=== PATIENT | female | born 1970 | race Caucasian/White ===

== ENCOUNTER → 2017-03-28 | Outpatient (CLI) | payer OTHER, SELFPAY ==
--- NOTE | 2017-03-28 16:15 | REP ---
MRI lumbar spine without contrast: History: Lumbar spine degeneration. Comparison lumbar spine MRI study is from 06/06/2015. Technique: Sagittal and axial T1 and T2-weighted scans are acquired in the usual fashion with and without fat saturation. Sequences include spin echo, turbo spin-echo, and STIR imaging sequences. MRI findings: Conus medullaris is normal in position and appearance at the L1 level. There are perineural cysts at the level of the second sacral segment. Lumbar vertebral body heights are preserved. Alignment is normal. There is no evidence of spondylolysis or spondylolisthesis. Disc spaces are maintained at each lumbar level except at L4-5 where there is mild narrowing and decreased disc space signal intensity. This is consistent with degenerative disc disease. Axial and sagittal images at L4-5 show mild facet hypertrophy but no evidence of disc herniation. No central canal stenosis or neural foraminal narrowing is seen. The L5-S1 level shows minimal facet hypertrophy. At L3-4, L2-3, and L1-2, no abnormality is seen. The degenerative disc changes and facet changes at L4-5 are radiographically stable from the prior study. Impression: Mild degenerative disc changes at L4-5 with facet osteoarthritic hypertrophy at 4-5 and 5-1 unchanged from the 2015 study. Perineural cysts incidentally noted in the sacrum unchanged as well. Signed by Jey Rodas MD 03/28/2017 05:00 P
== END ==
LOC: M PLARAD 15:15
PROVIDERS: ATTEND Physical Medicine & Rehabilitation
DX: M51.37 Other intervertebral disc degeneration, lumbosacral region (principal)

== ENCOUNTER → 2017-03-29 | Outpatient (REF) | payer BC, OTHER ==
[2017-03-30 15:59] LABS: AMYLASE 65 U/L (25-115); PERCENT SATURATION 36.5 % (13.2-45.0); TOTAL IRON BINDING CAPACITY 271 UG/DL (250-450)
[2017-03-31 08:20] LABS: CONTROL LINE HPYORI INT CTR LINE PRESENT
== END ==
LOC: M LAB REF 13:14
PROVIDERS: ATTEND Internal Medicine
DX: R23.1 Pallor (principal); R10.13 Epigastric pain

== ENCOUNTER → 2017-05-17 | Outpatient (REF) | payer BC | LOC: M LAB REF 11:56 | PROVIDERS: ATTEND Internal Medicine | DX: R30.0 Dysuria (principal); R35.0 Frequency of micturition; G25.81 Restless legs syndrome ==

== ENCOUNTER → 2017-05-27 | Outpatient (REF) | payer BC | LOC: M LAB REF 16:12 | PROVIDERS: ATTEND Internal Medicine | DX: R35.0 Frequency of micturition (principal) ==

== ENCOUNTER → 2017-06-02 | Outpatient (REF) | payer BC ==
[2017-06-02 20:13] LABS: BACTERIA, URINE SMALL AMOUNT; HYALINE CAST, URINE NONE SEEN /lpf (0-1); MICROSCOPIC EXAM PERFORMED; RBC, URINE 0-1 /hpf (0-3); SQUAMOUS EPITHELIAL CELL URINE SMALL AMOUNT /hpf (SMALL AMT); WBC, URINE 0-1 /hpf (0-3)
== END ==
LOC: M SMT 17:32
PROVIDERS: ATTEND Specialist
DX: M54.5 Low back pain (principal)

== ENCOUNTER → 2017-07-04 | Outpatient (REF) | payer BC | LOC: M SFHCWAGY 10:00 | PROVIDERS: ATTEND Nurse Practitioner Women's Health | DX: Z12.4 Encounter for screening for malignant neoplasm of cervix (principal); Z12.31 Encounter for screening mammogram for malignant neoplasm of breast ==

== ENCOUNTER → 2017-07-04 | Outpatient (CLI) | payer BC ==
--- NOTE | 2017-07-04 10:43 | REPMRS ---
Patient History The patient states she had a clinical breast exam in 06/2017. Family history of breast cancer in paternal aunt at age 50 or over and breast cancer in paternal grandmother. Digital Woman Screen Mammo: July 04, 2017 - Exam #: [id number] Bilateral CC and MLO view(s) were taken. Technologist: Anisha Dupree, Technologist Prior study comparison: May 04, 2016, digital woman screen mammo performed at [facility]. April 23, 2015, digital woman screen mammo performed at [facility] [place]. FINDINGS: The breast tissue is heterogeneously dense. This may lower the sensitivity of mammography. There has been no change in the appearance of the mammogram from the prior studies. There is a moderate amount of residual fibroglandular tissue which is fairly symmetric. There is no interval development of dominant mass, areas of architectural distortion, or clustered microcalcification typical of malignancy. ASSESSMENT: BI-RADS/ACR category 1 mammogram. Negative. Recommendation Routine screening mammogram in 1 year (for women over age 40). This mammogram was interpreted with the aid of an FDA-approved computer-aided dectection system. Electronically Signed By: Daljit Toribio MD 07/04/17 [id number]
== END ==
LOC: M WHC 09:42
PROVIDERS: ATTEND Nurse Practitioner Women's Health
DX: Z12.31 Encounter for screening mammogram for malignant neoplasm of breast (principal); R92.8 Other abnormal and inconclusive findings on diagnostic imaging of breast

== ENCOUNTER 2018-01-20 12:31 | Day surgery (SDC) | payer OTHER ==
[2018-01-20] MEDS ORDERED: NS 1,000 ML IV (12:45)
[2018-01-20] MEDS ORDERED: PROPOFOL 200 MG/20 ML VIAL As Ordered ×2 (14:17)
== END 2018-01-20 15:41 | disposition home or self-care (01) ==
LOC: M OPP 12:31
DX: Z12.11 Encounter for screening for malignant neoplasm of colon (principal); Z86.010 Personal history of colon polyps; D12.3 Benign neoplasm of transverse colon; K57.30 Diverticulosis of large intestine without perforation or abscess without bleeding; K64.8 Other hemorrhoids; J45.909 Unspecified asthma, uncomplicated; F32.9 Major depressive disorder, single episode, unspecified; G43.909 Migraine, unspecified, not intractable, without status migrainosus; F41.0 Panic disorder [episodic paroxysmal anxiety]; K58.9 Irritable bowel syndrome, unspecified; Z79.899 Other long term (current) drug therapy; Z88.8 Allergy status to other drugs, medicaments and biological substances; Z83.3 Family history of diabetes mellitus; Z80.7 Family history of other malignant neoplasms of lymphoid, hematopoietic and related tissues; Z82.49 Family history of ischemic heart disease and other diseases of the circulatory system
CPT/HCPCS: 45385

== ENCOUNTER → 2018-03-02 | Outpatient (REF) | payer OTHER ==
[2018-03-02 17:55] LABS: RHEUMATOID FACTOR QUANT < 10.0 IU/ML (<15.0)
[2018-03-05 00:06] LABS: ANTI DOUBLE STRAND-DNA AB <1 IU/mL (0-9); Lyme Disease IgG/IgM Antibodie <0.91 ISR (0.00-0.90); Lyme Disease IgM Ab Quantitati <0.80 index (0.00-0.79); RNP ANTIBODY < 0.2 AI (0.0-0.9); SMITHS ANTIBODY < 0.2 AI (0.0-0.9); SSA SJOGRENS A <0.2 AI (0.0-0.9); SSB SJOGRENS B <0.2 AI (0.0-0.9)
[2018-03-05 00:06] LABS: ANTI-CHROMATIN ANTIBODIES <0.2 AI (0.0-0.9)
== END ==
LOC: M LAB REF 17:30
DX: M25.50 Pain in unspecified joint (principal)

== ENCOUNTER 2018-03-13 08:12 | Outpatient (RCR) | payer OTHER | END 2018-03-14 | LOC: M PT 08:12 | DX: Z51.89 Encounter for other specified aftercare (principal); M54.30 Sciatica, unspecified side | CPT/HCPCS: 97163 ==

== ENCOUNTER 2018-03-28 09:24 | Outpatient (RCR) | payer OTHER | END 2018-04-14 | LOC: M PT 09:24 | DX: Z51.89 Encounter for other specified aftercare (principal); M54.30 Sciatica, unspecified side | CPT/HCPCS: 97010 ==

== ENCOUNTER 2018-04-18 09:23 | Outpatient (RCR) | payer OTHER | END 2018-05-14 | LOC: M PT 09:23 | DX: Z51.89 Encounter for other specified aftercare (principal); M54.30 Sciatica, unspecified side | CPT/HCPCS: 97110 ==

== ENCOUNTER → 2018-05-09 | Outpatient (CLI) | payer OTHER | LOC: M WHC 15:03 | DX: N92.1 Excessive and frequent menstruation with irregular cycle (principal); N88.8 Other specified noninflammatory disorders of cervix uteri | CPT/HCPCS: 76830 ==

== ENCOUNTER → 2018-07-28 | Outpatient (REF) | payer OTHER ==
[~2018-07-28] MED LIST: BREO1INH3 INH; DULO1CAP2 PO; MONT10TA2 PO; PANT40TA3 PO; ROPI0.253 PO; ROPI0.5T PO; TOPI25TA10 PO
[2018-07-28 14:16] LABS: TOTAL PROTEIN 7.3 GM/DL (6.4-8.2)
[2018-07-31 11:55] LABS: ALBUMIN 4.07 GM/DL (3.29-5.55); ALBUMIN % 55.8 % (55.8-66.1); ALPHA-1-GLOBULIN % 4.2 % (2.9-4.9); ALPHA-1-GLOBULINS 0.31 GM/DL (0.17-0.41); ALPHA-2-GLOBULINS 0.86 GM/DL (0.42-0.99); ALPHA-2-GLOBULINS % 11.8 % (7.1-11.8); BETA-1-GLOBULINS 0.51 GM/DL (0.28-0.60); BETA-2-GLOBULINS 0.43 GM/DL (0.19-0.55); BETA-2-GLOBULINS % 5.9 % (3.2-6.5); GAMMA GLOBULIN % 15.3 % (11.1-18.8); GAMMA GLOBULINS 1.12 GM/DL (0.65-1.58)
== END ==
LOC: M LAB REF 13:15
PROVIDERS: ATTEND Nurse Practitioner Family
DX: R00.2 Palpitations (principal)

== ENCOUNTER → 2018-09-26 | Outpatient (CLI) | payer BC ==
--- NOTE | 2018-09-26 11:34 | REPMRS ---
Patient History The patient states she had a clinical breast exam in 09/2018. Family history of breast cancer at age 50 or over in paternal aunt, breast cancer in paternal grandmother. No Hormone Replacement Therapy 3D TOMOSYNTHESIS WAS PERFORMED. Digital Woman Screen Mammo: September 26, 2018 - Exam #: [id number] Bilateral CC and MLO view(s) were taken. Technologist: Anisha Dupree, Technologist Prior study comparison: July 04, 2017, digital woman screen mammo performed at [facility]. May 04, 2016, digital woman screen mammo performed at [facility]. FINDINGS: The breast tissue is heterogeneously dense. This may lower the sensitivity of mammography. There has been no change in the appearance of the mammogram from the prior studies. There is a moderate amount of residual fibroglandular tissue which is fairly symmetric. There is no interval development of dominant mass, areas of architectural distortion, or clustered microcalcification typical of malignancy. Assessment: BI-RADS/ACR category 1 mammogram. Negative Mammogram. Recommendation Routine screening mammogram in 1 year (for women over age 40). This mammogram was interpreted with the aid of an FDA-approved computer-aided dectection system. Electronically Signed By: Daljit Toribio MD 09/26/18 [id number]
== END ==
LOC: M WHC 09:44
PROVIDERS: ATTEND Nurse Practitioner Women's Health
DX: Z12.31 Encounter for screening mammogram for malignant neoplasm of breast (principal); Z80.3 Family history of malignant neoplasm of breast

== ENCOUNTER 2018-10-06 20:46 | Inpatient (IN) | payer BC ==
[~2018-10-06] VITALS: Ht 162.6 cm; Wt 102.6 kg
[2018-10-06] MEDS ORDERED: RANI1SYP PO (20:52)
[2018-10-06] MEDS ORDERED: HYDR12.55 PO (20:52)
[2018-10-06 21:50] LABS: BASO # 0.1 10^3/uL (0.0-0.2); BASO % 0.4 % (0.0-1.0); EOS # 0.1 10^3/uL (0.0-0.50); EOS % 0.4 % (0.0-3.0); HEMATOCRIT 41.2 % (36.0-47.0); HEMOGLOBIN 13.2 g/dl (12.0-15.5); LYMPH # 1.9 10^3/uL (1.5-4.5); LYMPH % 10.3 % (24.0-44.0); MEAN CORPUSCULAR HEMOGLOBIN 26.8 pg (27.0-33.0); MEAN CORPUSCULAR VOLUME 83.6 fl (80.0-96.0); MONO # 0.9 10^3/uL (0.0-0.8); MONO % 4.8 % (0.0-5.0); NEUTROPHILS # 15.2 10^3/uL (1.8-7.7); NEUTROPHILS % 83.5 % (36.0-66.0); PLATELET COUNT, AUTOMATED 352 10^3/uL (150-450); RED BLOOD COUNT 4.93 10^6/uL (4.00-5.40); WHITE BLOOD COUNT 18.1 10^3/uL (4.0-10.0)
[2018-10-06] MEDS ORDERED: SUCRALFATE 1 GM TAB PO ONE (22:15)
[2018-10-06] MEDS ORDERED: PANTOPRAZOLE 40MG TAB (PROTONIX) PO ONE (22:15)
[2018-10-06] MEDS ORDERED: GI COCKTAIL 50ML BTL(HYOSCYAMINE/MAALOX/LIDOCAINE VISCOUS)(1:3:1) PO ONE (22:15)
[2018-10-06] MEDS ORDERED: ONDANSETRON 4MG/2ML VIAL (J2405) IV ONE (22:15)
[2018-10-06] MEDS ORDERED: NS 1,000 ML IV ONE (22:15)
[2018-10-06 22:29] LABS: ALBUMIN 3.6 GM/DL (3.2-5.2); ALT/SGPT 42 U/L (12-78); BILIRUBIN,DIRECT 0.1 MG/DL (0.0-0.2); BILIRUBIN,TOTAL 0.5 MG/DL (0.2-1.0); BLOOD UREA NITROGEN 11 MG/DL (7-18); CALCIUM LEVEL 9.2 MG/DL (8.5-10.1); CARBON DIOXIDE LEVEL 30 MEQ/L (21-32); CHLORIDE LEVEL 100 MEQ/L (98-107); CREATININE FOR GFR 0.79 MG/DL (0.55-1.30); GLOMERULAR FILTRATION RATE > 60.0 (>58); GLUCOSE, FASTING 106 MG/DL (70-100); LIPASE 82 U/L (73-393); POTASSIUM SERUM 4.2 MEQ/L (3.5-5.1); SODIUM LEVEL 139 MEQ/L (136-145); TOTAL PROTEIN 7.1 GM/DL (6.4-8.2)
[2018-10-06] MEDS ORDERED: KETOROLAC 30 MG/ML VIAL (J1885) IV ONE (23:15)
[2018-10-06 23:24] LABS: CK-MB VALUE MASS < 1.0 NG/ML (<3.6); CPK CREATINE PHOSPHOKINASE 59 U/L (26-192); MB/CK RELATIVE INDEX 1.69 (< OR =4); TROPONIN I < 0.02 NG/ML (< 0.10)
[2018-10-06] MEDS ORDERED: ISOVUE-370 76% 100ML VIAL (Q9967) As Ordered ONE (23:40)
[2018-10-06 23:45] LABS: HCG, SERUM QUALITATIVE NEGATIVE (NEGATIVE)
--- NOTE | 2018-10-07 00:17 | REPVR ---
EXAM: CT Abdomen and Pelvis With Contrast EXAM DATE/TIME: 10/06/2018 11:09 PM CLINICAL HISTORY: 48 years old, female; Pain; Abdominal pain; Localized; Right; Additional info: Ruq, rlq pain sudden onset TECHNIQUE: Axial computed tomography images of the abdomen and pelvis with intravenous contrast. All CT scans at this facility use at least one of these dose optimization techniques: automated exposure control; mA and/or kV adjustment per patient size (includes targeted exams where dose is matched to clinical indication); or iterative reconstruction. Coronal and sagittal reformatted images were created and reviewed. CONTRAST: Contrast Material: 100 ml of iso; Contrast Route: ac COMPARISON: PELVIS NON-OB COMPLETE US 05/09/2018 3:15 PM FINDINGS: Lower thorax: Mild linear stranding and groundglass at the lung bases, likely due to atelectasis and/or scarring. Small hiatal hernia. ABDOMEN: Liver: Diffuse hepatic steatosis. Scattered hepatic cysts, measuring up to 1.5 x 1.2 cm and the right hepatic lobe. Gallbladder and bile ducts: No radiodense gallstones. No biliary ductal dilatation. Pancreas: Unremarkable. Spleen: Unremarkable. Adrenals: Unremarkable. Kidneys and ureters: 7 mm low-density right renal lesion, too small to characterize. No radiodense calculi. No hydronephrosis. Stomach and bowel: Multiple mildly distended loops of small bowel in the right abdomen with associated air-fluid levels and transition to decompressed distal small bowel in the right lower quadrant, where there is associated fecalization and mild small bowel wall thickening. Scattered colonic diverticula without evidence of diverticulitis. No pneumatosis. Appendix: Normal. PELVIS: Bladder: Unremarkable. Reproductive: Probable cervical nabothian cysts. Mild nonspecific endometrial thickening. ABDOMEN and PELVIS: Intraperitoneal space: Small ascites, likely reactive. No organized fluid collection. No free air. Bones/joints: No acute osseous abnormality. Mild degenerative changes. Soft tissues: Small, fat-containing umbilical hernia. Vasculature: Unremarkable. No aneurysm. Lymph nodes: No pathologically enlarged lymph nodes. IMPRESSION: 1. Multiple mildly distended loops of small bowel in the right abdomen with associated air-fluid levels and transition to decompressed distal small bowel in the right lower quadrant, where there is associated fecalization and mild small bowel wall thickening. Findings are suggestive of early versus partial small bowel obstruction. 2. Mild nonspecific endometrial thickening. If clinically indicated, pelvic ultrasound may be obtained for further evaluation. 3. Additional findings, as above. COMMENT: Consistent with the [employer] Incidental Findings Committee Report (J Am Baltazar Radiol 2010): Unless the patients specific circumstances suggest otherwise, any liver lesion 0.5 cm or less, any cystic kidney lesion less than 1.0 cm, and/or any adrenal lesion 1.0 cm or less not otherwise characterized in this report as possessing suspicious or indeterminate imaging features is/are highly likely to be benign and do not require follow-up imaging or biopsy. Electronically signed by: Manuel Sloan On 10/07/2018 00:17:15 AM
[2018-10-07] MEDS ORDERED: ACETAMINOPHEN TAB 650MG DOSE (2X325MG) PO PRN (01:15)
[2018-10-07] MEDS ORDERED: ONDANSETRON 4MG/2ML VIAL (J2405) IV PRN (01:15)
[2018-10-07] MEDS ORDERED: KETOROLAC 30 MG/ML VIAL (J1885) IV PRN (01:15)
[2018-10-07] MEDS ORDERED: NORCO, ANEXSIA 5/325MG TABLET (HYDROcodone/ACETAMINOPHEN) PO PRN (01:15)
[2018-10-07] MEDS ORDERED: DULO1CAP2 PO (01:30)
[2018-10-07] MEDS ORDERED: ROPI0.253 PO (01:30)
[2018-10-07 03:00] VITALS: BP 169/95
[2018-10-07] MEDS: MORPHINE 4 MG/ML 1ML VIAL/SYRINGE (J2270) IV PRN ×2 (03:15→09:57)
[2018-10-07] MEDS: LR 1,000 ML IV SCH ×3 (03:19→18:04)
[2018-10-07 03:45] VITALS: BP 123/61
--- NOTE | 2018-10-07 05:55 | ECGEPIP ---
Stationary ECG Study [facility] - ED Test Date: 2018-10-06 Pat Name: SANTIAGO LYNN Department: Room: - Gender: F Key Filer: ct : 1970 Requested By: JONATHAN Cole PA-C Order Number: [id number] Reading MD: Juan Smith Measurements Intervals [place] Rate: 82 P: 25 DC: 142 QRS: 20 QRSD: 90 T: 57 QT: 378 QTc: 442 Interpretive Statements SINUS RHYTHM NONSPECIFIC ST & T-WAVE ABNORMALITY SIMILAR TO 09/25/15 Electronically Signed On 10-07-2018 5:55:00 EST by Juan Smith
[2018-10-07 08:00] VITALS: BP 124/67
[2018-10-07 09:10] LABS: HEMATOCRIT 38.5 % (36.0-47.0); HEMOGLOBIN 12.2 g/dl (12.0-15.5); MEAN CORPUSCULAR HEMOGLOBIN 27.1 pg (27.0-33.0); MEAN CORPUSCULAR HGB CONC 31.7 g/dl (32.0-36.5); MEAN CORPUSCULAR VOLUME 85.4 fl (80.0-96.0); PLATELET COUNT, AUTOMATED 335 10^3/uL (150-450); RED BLOOD COUNT 4.51 10^6/uL (4.00-5.40); WHITE BLOOD COUNT 12.6 10^3/uL (4.0-10.0)
--- NOTE | 2018-10-07 09:35 | REP ---
Acute abdominal series four views including PA chest, upright view of the abdomen and two supine views of the abdomen: PA chest: Comparison is 11/11/2015. Lung [place] are clear. Cardiac size is normal. The gaston, mediastinum, skeletal structures are unremarkable. There is no free subdiaphragmatic air. No interval change. Impression: Negative PA chest. Abdomen, supine upright views: Comparison is the CT performed 10/06/2018. The bowel gas pattern is normal. There are no calcifications. There is contrast in the renal pelves and bladder from the comparison CT. There are no calcifications or foreign bodies. Skeletal structures are unremarkable. Impression: Normal bowel gas pattern. Electronically Signed by Daljit Navarro MD 10/07/2018 09:26 A
[2018-10-07 09:37] LABS: ALBUMIN 3.1 GM/DL (3.2-5.2); ALT/SGPT 37 U/L (12-78); BILIRUBIN,TOTAL 0.3 MG/DL (0.2-1.0); BLOOD UREA NITROGEN 10 MG/DL (7-18); CALCIUM LEVEL 8.3 MG/DL (8.5-10.1); CARBON DIOXIDE LEVEL 31 MEQ/L (21-32); CHLORIDE LEVEL 104 MEQ/L (98-107); CREATININE FOR GFR 0.75 MG/DL (0.55-1.30); GLOMERULAR FILTRATION RATE > 60.0 (>58); GLUCOSE, FASTING 84 MG/DL (70-100); POTASSIUM SERUM 4.1 MEQ/L (3.5-5.1); SODIUM LEVEL 143 MEQ/L (136-145)
[2018-10-07] MEDS: PANTOPRAZOLE 40MG INJ (PROTONIX) (C9113) IV SCH (09:38)
[2018-10-07] MEDS: ENOXAPARIN 30 MG/0.3 ML SYR (J1650) SC SCH (10:12)
--- NOTE | 2018-10-07 10:36 | IPNPDOC ---
Subjective Date Seen The patient was seen on 10/07/18. Subjective Chief Complaint/HPI Patient was examined at bedside. She reported that she h VS, I&O, 24H, Fishbone Vital Signs/I&O Vital Signs Date Time Temp Pulse Resp B/P (MAP) Pulse Ox O2 Delivery O2 Flow Rate FiO2 10/07/18 10:11 20 10/07/18 08:00 97.2 67 124/67 (86) 95 10/07/18 01:57 Room Air I&O- Last 24 Hours up to 6 AM 10/07/18 06:00 Intake Total 375 ml Balance 375 ml Laboratory Data 24H LABS Laboratory Tests 2 10/06/18 21:35: Immature Granulocyte % (Auto) 0.6, White Blood Count 18.1H, Red Blood Count 4.93, Hemoglobin 13.2, Hematocrit 41.2, Mean Corpuscular Volume 83.6, Mean Corpuscular Hemoglobin 26.8L, Mean Corpuscular Hemoglobin Concent 32.0, Red Cell Distribution Width 14.2, Platelet Count 352, Neutrophils (%) (Auto) 83.5H, Lymphocytes (%) (Auto) 10.3L, Monocytes (%) (Auto) 4.8, Eosinophils (%) (Auto) 0.4, Basophils (%) (Auto) 0.4, Neutrophils # (Auto) 15.2H, Lymphocytes # (Auto) 1.9, Monocytes # (Auto) 0.9H, Eosinophils # (Auto) 0.1, Basophils # (Auto) 0.1, Nucleated Red Blood Cells % (auto) 0.0, Urine Color YELLOW, Urine Appearance HAZY, Urine pH 9.0, Urine Specific [place] 1.011, Urine Protein NEGATIVE, Urine Glucose (UA) NEGATIVE, Urine Ketones TRACEH, Urine Blood 2+H, Urine Nitrite NEGATIVE, Urine Bilirubin NEGATIVE, Urine Urobilinogen 0.2, Urine Leukocyte Esterase NEGATIVE, Urine WBC (Auto) 2, Urine RBC (Auto) 37H, Urine Hyaline Casts (Auto) 0, Urine Bacteria (Auto) NEGATIVE, Urine Squamous Epithelial Cells 0, Urine Amorphous Sediment SMALLH, Urine Mucus (Auto) SMALL, Urine Sperm (Auto) , Anion Gap 9, Glomerular Filtration Rate > 60.0, Calcium Level 9.2, Aspartate Amino Transf (AST/SGOT) 30, Alanine Aminotransferase (ALT/SGPT) 42, Alkaline Phosphatase 121H, Total Bilirubin 0.5, Direct Bilirubin 0.1, Total Creatine Kinase 59, Creatine Kinase MB < 1.0, Creatine Kinase MB Relative Index 1.69, Troponin I < 0.02, Total Protein 7.1, Albumin 3.6, Albumin/Globulin Ratio 1.03, Lipase 82, Human Chorionic Gonadotropin, Qual NEGATIVE 10/07/18 08:43: Nucleated Red Blood Cells % (auto) 0.0, Anion Gap 8, Glomerular Filtration Rate > 60.0, Calcium Level 8.3L, Aspartate Amino Transf (AST/SGOT) 27, Alanine Aminotransferase (ALT/SGPT) 37, Alkaline Phosphatase 112, Total Bilirubin 0.3, Total Protein 6.0L, Albumin 3.1L, Albumin/Globulin Ratio 1.07, Blood Urea Nitrogen 10, Creatinine 0.75, Sodium Level 143, Potassium Level 4.1, Chloride Level 104, Carbon Dioxide Level 31 CBC/BMP Laboratory Tests 10/06/18 21:35 Red Blood Count 4.93, Mean Corpuscular Volume 83.6, Mean Corpuscular Hemoglobin 26.8 L, Mean Corpuscular Hemoglobin Concent 32.0, Red Cell Distribution Width 14.2, Neutrophils (%) (Auto) 83.5 H, Lymphocytes (%) (Auto) 10.3 L, Monocytes (%) (Auto) 4.8, Eosinophils (%) (Auto) 0.4, Basophils (%) (Auto) 0.4, Neutro phils # (Auto) 15.2 H, Lymphocytes # (Auto) 1.9, Monocytes # (Auto) 0.9 H, Eosinophils # (Auto) 0.1, Basophils # (Auto) 0.1 10/07/18 08:43 Red Blood Count 4.51, Mean Corpuscular Volume 85.4, Mean Corpuscular Hemoglobin 27.1, Mean Corpuscular Hemoglobin Concent 31.7 L, Red Cell Distribution Width 14.4, Calcium Level 8.3 L, Aspartate Amino Transf (AST/SGOT) 27, Alanine Aminotr ansferase (ALT/SGPT) 37, Alkaline Phosphatase 112, Total Bilirubin 0.3, Total Protein 6.0 L, Albumin 3.1 L HECTOR LARES DO Oct 07, 2018 10:36
[2018-10-07] MEDS: MOM 30ML SUSPENSION UDC PO SCH (10:51)
[2018-10-07] MEDS: NORCO, ANEXSIA 5/325MG TABLET (HYDROcodone/ACETAMINOPHEN) PO PRN ×2 (10:52→16:38)
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
[2018-10-07] MEDS ORDERED: ALBUTEROL 90 MCG/ACT 8GM HFA INHALER INH PRN (11:30)
[2018-10-07] MEDS: hydroCHLOROthiazide 12.5 MG CAPSULE PO SCH (12:35)
[2018-10-07] MEDS: TOPIRAMATE (TopAMAX) 25 MG TAB PO SCH (12:35)
[2018-10-07] MEDS: DULoxetine 30 MG CAP (CYMBALTA) PO SCH (12:35)
[2018-10-07 16:00] VITALS: BP 131/62
[2018-10-07] MEDS: SYMBICORT 80/4.5MCG INHALER 6GM INH SCH (19:13)
[2018-10-07 20:00] VITALS: BP 116/57
[2018-10-07] MEDS ORDERED: rOPINIRole 0.25 MG TAB(REQUIP) PO SCH (21:00)
[2018-10-07] MEDS ORDERED: DULoxetine 30 MG CAP (CYMBALTA) PO SCH (21:00)
[2018-10-08] MEDS: LR 1,000 ML IV SCH ×2 (01:39→09:33)
[2018-10-08 04:00] VITALS: BP 126/60
[2018-10-08] MEDS ORDERED: MIRALAX *UNIT DOSE* 17GM PACKET PO ONE (07:15)
[2018-10-08] MEDS: SYMBICORT 80/4.5MCG INHALER 6GM INH SCH (07:32)
[2018-10-08 07:45] VITALS: BP 123/73
[2018-10-08 08:23] LABS: HEMATOCRIT 35.4 % (36.0-47.0); HEMOGLOBIN 11.2 g/dl (12.0-15.5); MEAN CORPUSCULAR HEMOGLOBIN 27.6 pg (27.0-33.0); MEAN CORPUSCULAR HGB CONC 31.6 g/dl (32.0-36.5); MEAN CORPUSCULAR VOLUME 87.2 fl (80.0-96.0); PLATELET COUNT, AUTOMATED 267 10^3/uL (150-450); RED BLOOD COUNT 4.06 10^6/uL (4.00-5.40)
[2018-10-08] MEDS: MOM 30ML SUSPENSION UDC PO SCH (08:30)
[2018-10-08] MEDS: DULoxetine 30 MG CAP (CYMBALTA) PO SCH (08:30)
[2018-10-08] MEDS: hydroCHLOROthiazide 12.5 MG CAPSULE PO SCH (08:30)
[2018-10-08] MEDS: TOPIRAMATE (TopAMAX) 25 MG TAB PO SCH (08:31)
[2018-10-08] MEDS: ENOXAPARIN 30 MG/0.3 ML SYR (J1650) SC SCH (08:31)
[2018-10-08] MEDS: PANTOPRAZOLE 40MG INJ (PROTONIX) (C9113) IV SCH (08:31)
[2018-10-08 08:40] LABS: BLOOD UREA NITROGEN 6 MG/DL (7-18); CALCIUM LEVEL 7.7 MG/DL (8.5-10.1); CARBON DIOXIDE LEVEL 30 MEQ/L (21-32); CHLORIDE LEVEL 106 MEQ/L (98-107); CREATININE FOR GFR 0.74 MG/DL (0.55-1.30); GLOMERULAR FILTRATION RATE > 60.0 (>58); GLUCOSE, FASTING 80 MG/DL (70-100); POTASSIUM SERUM 4.1 MEQ/L (3.5-5.1); SODIUM LEVEL 144 MEQ/L (136-145)
[2018-10-08] MEDS ORDERED: MONTELUKAST 10 MG TAB PO SCH (09:00)
[2018-10-08] MEDS ORDERED: NORCOTAB PO (14:26)
--- NOTE | 2018-10-08 14:38 | DS.PDOC ---
Discharge Summary General Date of Admission Oct 07, 2018 at 01:12 Date of Discharge October 08, 2018 Attending Physician: SAUMYA DAWSON MD Discharge Summary PROCEDURES PERFORMED DURING STAY: None. ADMITTING DIAGNOSES: 1. partial small bowel obstruction vs gastroenteritis with ileus. DISCHARGE DIAGNOSES: 1. partial small bowel obstruction vs gastroenteritis with ileus resolved. COMPLICATIONS/CHIEF COMPLAINT: Small Bowelobstuction. HISTORY OF PRESENT ILLNESS: . HOSPITAL COURSE: . DISCHARGE MEDICATIONS: Please see below. ALLERGIES: Please see below. PHYSICAL EXAMINATION ON DISCHARGE: VITAL SIGNS: Please see below. GENERAL: HEENT: NECK: CARDIOVASCULAR EXAMINATION: RESPIRATORY EXAMINATION: ABDOMINAL EXAMINATION: EXTREMITIES: SKIN: NEUROLOGICAL EXAMINATION: PSYCHIATRIC EXAMINATION: LABORATORY DATA: Please see below. IMAGING: PROGNOSIS: ACTIVITY: [As tolerated]. DIET: DISCHARGE PLAN: DISPOSITION: . DISCHARGE INSTRUCTIONS: 1. . ITEMS TO FOLLOWUP ON ON OUTPATIENT: 1. . DISCHARGE CONDITION: [Stable]. TIME SPENT ON DISCHARGE: Greater than minutes. Vital Signs/I&Os Vital Signs Date Time Temp Pulse Resp B/P (MAP) Pulse Ox O2 Delivery O2 Flow Rate FiO2 10/08/18 07:45 97.8 76 18 123/73 (90) 96 10/07/18 01:57 Room Air I&O- Last 24 Hours up to 6 AM 10/08/18 06:00 Intake Total 3360 ml Output Total 1200 ml Balance 2160 ml Laboratory Data Labs 24H Laboratory Tests 2 10/08/18 07:53: Nucleated Red Blood Cells % (auto) 0.0, Anion Gap 8, Glomerular Filtration Rate > 60.0, Blood Urea Nitrogen 6L, Creatinine 0.74, Sodium Level 144, Potassium Level 4.1, Chloride Level 106, Carbon Dioxide Level 30, Calcium Level 7.7L CBC/BMP Laboratory Tests 10/08/18 07:53 Red Blood Count 4.06, Mean Corpuscular Volume 87.2, Mean Corpuscular Hemoglobin 27.6, Mean Corpuscular Hemoglobin Concent 31.6 L, Red Cell Distribution Width 14.4, Calcium Level 7.7 L Discharge Medications Scheduled Duloxetine Hcl (Duloxetine HCl) 30 Mg Cap, 60 MG PO QAM, (Reported) Duloxetine Hcl (Duloxetine HCl) 30 Mg Cap, 30 MG PO QHS, (Reported) Fluticasone/Vilanterol (Breo Ellipta 200-25 Mcg/INH) 1 Inh Inh, 1 PUFF INH DAILY, (Reported) Hydrochlorothiazide (Hydrochlorothiazide) 12.5 Mg Tab, 12.5 MG PO DAILY, (Reported) Montelukast Sodium (Montelukast Sodium) 10 Mg Tab, 10 MG PO DAILY, (Reported) Ropinirole Hydrochloride (Ropinirole HCl) 0.25 Mg Tab, 0.75 MG PO QPM, (Reported) Topiramate (Topiramate) 25 Mg Tab, 25 MG PO DAILY, (Reported) Scheduled PRN Acetaminophen/Hydrocodone ([employer], Anexsia 5/325) 1 Tab Tab, 1 TAB PO Q4HP PRN for MODERATE PAIN (PS 5-7) Allergies Coded Allergies: Amitriptyline (Verified Adverse Reaction, Unknown, over sedation, 01/05/18) SAUMYA DAWSON MD Oct 08, 2018 14:38
== END 2018-10-08 15:15 | disposition home or self-care (01) | DRG 247 ==
LOC: M ED 20:46 → M ED INP 10-07 01:12 → M PED 10-07 02:52
PROVIDERS: ADMIT Surgery; ATTEND Surgery
DX: K56.600 Partial intestinal obstruction, unspecified as to cause (principal); K76.89 Other specified diseases of liver; K52.9 Noninfective gastroenteritis and colitis, unspecified; Z79.899 Other long term (current) drug therapy; I10 Essential (primary) hypertension; Z88.8 Allergy status to other drugs, medicaments and biological substances; K21.9 Gastro-esophageal reflux disease without esophagitis; J45.20 Mild intermittent asthma, uncomplicated; E66.9 Obesity, unspecified; M54.5 Low back pain; L70.9 Acne, unspecified; N39.3 Stress incontinence (female) (male); F32.9 Major depressive disorder, single episode, unspecified; G43.909 Migraine, unspecified, not intractable, without status migrainosus; K56.7 Ileus, unspecified

== ENCOUNTER → 2018-12-18 | Outpatient (REF) | payer BC ==
[~2018-12-18] MED LIST changes: +HYDR-3715 PO; +HYDR12.55 PO; +RANI1SYP PO
[2018-12-18 13:31] LABS: PERCENT SATURATION 4.5 % (13.2-45.0)
== END ==
LOC: M LAB REF 13:03
PROVIDERS: ATTEND Internal Medicine
DX: N93.9 Abnormal uterine and vaginal bleeding, unspecified (principal)

== ENCOUNTER → 2018-12-20 | Outpatient (REF) | payer BC ==
[~2018-12-20] MED LIST changes: +FERR325T16 PO; +LISI-542 PO
== END ==
LOC: M SFHCWAGY 15:45
PROVIDERS: ATTEND Nurse Practitioner Women's Health
DX: N92.1 Excessive and frequent menstruation with irregular cycle (principal)

== ENCOUNTER 2019-01-02 10:01 | Day surgery (SDC) | payer BC ==
[~2019-01-02] VITALS: Ht 165.1 cm; Wt 102.1 kg
[~2019-01-02 10:01] MED LIST changes: +KETOROLAC 60 MG/2 ML VIAL (J1885) As Ordered ONE; +LIDOCAINE 2% INJ 100 MG/5 ML SDV (FOR ANES.) As Ordered ONE; +LR 1,000 ML IV ONE; +MIDAZOLAM INJ 2 MG/2 ML VIAL (J2250) As Ordered ONE; +ONDANSETRON 4MG/2ML VIAL (J2405) As Ordered ONE; +PROPOFOL 200 MG/20 ML VIAL As Ordered ONE; +dexameTHASONE 4 MG/ML 1ML VIAL (J1100) As Ordered ONE; +fentaNYL 100 MCG/2 ML INJECTION (J3010) As Ordered ONE
[2019-01-02] MEDS ORDERED: SEVOFLURANE INHAL SOLN 250 ML BTL As Ordered ONE (10:52)
[2019-01-02] MEDS ORDERED: PERCOCET 5MG/325MG TAB As Ordered ONE (12:49)
[2019-01-02] MEDS ORDERED: fentaNYL 100 MCG/2 ML INJECTION (J3010) As Ordered ONE (12:49)
[2019-01-02] MEDS ORDERED: ONDANSETRON 4MG/2ML VIAL (J2405) As Ordered ONE (12:50)
[2019-01-02] MEDS ORDERED: NORCO, ANEXSIA 5/325MG TABLET (HYDROcodone/ACETAMINOPHEN) PO PRN (13:00)
[2019-01-02] MEDS ORDERED: METOCLOPRAMIDE INJ 10MG/2ML VIAL (J2765) IV PRN (13:00)
[2019-01-02] MEDS ORDERED: KETOROLAC 30 MG/ML VIAL (J1885) IV PRN (13:00)
[2019-01-02] MEDS ORDERED: ONDANSETRON 4MG/2ML VIAL (J2405) IV PRN (13:00)
[2019-01-02] MEDS ORDERED: LR 1,000 ML IV SCH ×2 (13:00)
[2019-01-02] MEDS: fentaNYL 100 MCG/2 ML INJECTION (J3010) IV PRN ×4 (13:03→13:29)
[2019-01-02] MEDS: PERCOCET 5MG/325MG TAB PO PRN ×2 (13:10→13:46)
[2019-01-02] MEDS ORDERED: dexameTHASONE 4 MG/ML 1ML VIAL (J1100) As Ordered ONE (13:20)
--- NOTE | 2019-01-02 13:39 | RO ---
DATE OF PROCEDURE: 01/02/2019 PREPROCEDURE DIAGNOSIS: Menorrhagia, dysmenorrhea. POSTPROCEDURE DIAGNOSIS: Menorrhagia, dysmenorrhea. PROCEDURE: Dilation and curettage, hysteroscopy, NovaSure ablation. SURGEON: Dr. Nafisa Rodas. EMBOSSOGRAPH OPERATOR: None. ANESTHESIA: Laryngeal mask anesthesia (LMA). DESCRIPTION OF PROCEDURE: Prema was brought to the operating room where sufficient LMA anesthesia was induced and she was prepped, draped and positioned in the usual sterile fashion. The bladder emptied and anterior aspect of the cervix grasped with a single tooth tenaculum. This uterus is reasonably well supported. She then had her cervix carefully dilated. We measured the intracavity length which was 5 because we had a cavity total length of 9 and a cervical length of 4. So giving an endometrial cavity length of 5. This was subsequently measured at 4.6 but at this point, we did not have width measured, so we just had length. We carefully dilated the cervix in order to allow introduction of the hysteroscope, which was used to visual the endometrial cavity. Normal tubal ostia were noted and overgrowth of the endometrium consistent with the patient's history with no significant lesions were noted. Curettage was carried out and then the NovaSure ablative device was placed. Length was set at 5, width was measured at 4.6 and an uncomplicated NovaSure ablation was then carried out. The procedure was ended. ESTIMATED BLOOD LOSS FOR THE PROCEDURE: 5 mL or less. FLUID REPLACEMENT: Crystalloid. COMPLICATIONS: None. SPECIMENS: Curettings. CONDITION AND DISPOSITION: Prema tolerated the procedure well and was recovering in the recovery room in good condition.
[2019-01-02] MEDS ORDERED: MORPHINE 4 MG/ML 1ML VIAL/SYRINGE (J2270) As Ordered ONE (14:22)
[2019-01-02] MEDS ORDERED: MORPHINE 4 MG/ML 1ML VIAL/SYRINGE (J2270) IV PRN (14:30)
[2019-01-02 15:55] VITALS: BP 151/77
[2019-01-02] MEDS ORDERED: IBUPROFEN 600 MG TAB PO PRN (19:00)
== END 2019-01-02 16:02 | disposition home or self-care (01) ==
LOC: M SDC 10:01
PROVIDERS: ATTEND Obstetrics & Gynecology
DX: N94.6 Dysmenorrhea, unspecified (principal); N92.4 Excessive bleeding in the premenopausal period; I10 Essential (primary) hypertension; K58.8 Other irritable bowel syndrome; K21.9 Gastro-esophageal reflux disease without esophagitis; J45.909 Unspecified asthma, uncomplicated; G25.81 Restless legs syndrome; Z88.8 Allergy status to other drugs, medicaments and biological substances; Z79.899 Other long term (current) drug therapy; F41.9 Anxiety disorder, unspecified; F32.9 Major depressive disorder, single episode, unspecified; E66.9 Obesity, unspecified
CPT/HCPCS: 58563; 88305; J1100; J1885; J2250; J2270; J2405; J3010

== ENCOUNTER → 2019-01-29 | Outpatient (REF) | payer BC, OTHER ==
[~2019-01-29] MED LIST changes: -KETOROLAC 60 MG/2 ML VIAL (J1885) As Ordered ONE; -LIDOCAINE 2% INJ 100 MG/5 ML SDV (FOR ANES.) As Ordered ONE; -LR 1,000 ML IV ONE; -MIDAZOLAM INJ 2 MG/2 ML VIAL (J2250) As Ordered ONE; -ONDANSETRON 4MG/2ML VIAL (J2405) As Ordered ONE; -PROPOFOL 200 MG/20 ML VIAL As Ordered ONE; -dexameTHASONE 4 MG/ML 1ML VIAL (J1100) As Ordered ONE; -fentaNYL 100 MCG/2 ML INJECTION (J3010) As Ordered ONE
== END ==
LOC: M LAB REF 12:31
PROVIDERS: ATTEND Internal Medicine
DX: R50.9 Fever, unspecified (principal); R05 Cough; J45.909 Unspecified asthma, uncomplicated

== ENCOUNTER → 2019-04-24 | Outpatient (REF) | payer BC, OTHER ==
[~2019-04-24] MED LIST changes: -DULO1CAP2 PO; +DULO1CAP5 PO
[2019-04-24 18:43] LABS: PERCENT SATURATION 6.8 % (13.2-45.0)
== END ==
LOC: M LAB REF 16:54
PROVIDERS: ATTEND Internal Medicine
DX: D50.9 Iron deficiency anemia, unspecified (principal)

== ENCOUNTER → 2019-08-09 | Outpatient (REF) | payer BC, OTHER ==
[~2019-08-09] MED LIST changes: +ACET-683 PO; +CIPR-249 PO; +IBUP-1022 PO
== END ==
LOC: M LAB REF 12:40
PROVIDERS: ATTEND Nurse Practitioner Family
DX: N39.0 Urinary tract infection, site not specified (principal)

== ENCOUNTER 2019-08-13 09:41 | Emergency (ER) | payer BC, OTHER ==
[~2019-08-13] VITALS: Ht 162.6 cm; Wt 94.0 kg
[~2019-08-13 09:41] MED LIST changes: -ACET-683 PO; -CIPR-249 PO; -IBUP-1022 PO
[2019-08-13] MEDS ORDERED: IBUP-1022 PO (09:51)
[2019-08-13] MEDS ORDERED: ACET-683 PO (09:51)
--- NOTE | 2019-08-13 11:57 | REP ---
Clinical: Cough and shortness of breath . Comparison: 01/29/2019 . Technique: PA and lateral. Findings: The mediastinum and cardiac silhouette are normal. The lung whitlock are clear and without acute consolidation, effusion, or pneumothorax. The skeletal structures are intact and normal. Impression: 1. No acute cardiopulmonary process. Electronically Signed by Joe Rodriguez MD 08/13/2019 11:48 A
[2019-08-13 13:23] LABS: INFLUENZA A AMPLIFICATION NEGATIVE (NEGATIVE); INFLUENZA B AMPLIFICATION NEGATIVE (NEGATIVE)
[2019-08-13 13:48] VITALS: BP 142/78
[2019-08-13] MEDS ORDERED: CIPR-249 PO (14:03)
== END 2019-08-13 14:10 | disposition home or self-care (01) ==
LOC: M ED 09:41
DX: N39.0 Urinary tract infection, site not specified (principal); J20.9 Acute bronchitis, unspecified

== ENCOUNTER → 2019-09-04 | Outpatient (REF) | payer OTHER ==
[~2019-09-04] MED LIST changes: +ACET-683 PO; +CIPR-249 PO; +IBUP-1022 PO
== END ==
LOC: M LAB REF 12:50
PROVIDERS: ATTEND Internal Medicine
DX: N39.0 Urinary tract infection, site not specified (principal)

== ENCOUNTER → 2019-09-07 | Outpatient (REF) | payer OTHER | LOC: M LAB REF 12:07 | PROVIDERS: ATTEND Internal Medicine | DX: N39.0 Urinary tract infection, site not specified (principal) ==

== ENCOUNTER → 2019-09-25 | Outpatient (REF) | payer BC, OTHER ==
[~2019-09-25] MED LIST changes: -MONT10TA2 PO; +MONT10TA4 PO; -ROPI0.5T PO; +ROPI0.5T3 PO
== END ==
LOC: M LAB REF 12:13
PROVIDERS: ATTEND Internal Medicine
DX: D50.9 Iron deficiency anemia, unspecified (principal)

== ENCOUNTER → 2019-09-27 | Outpatient (CLI) | payer BC, SELFPAY ==
--- NOTE | 2019-09-27 11:39 | REPMRS ---
Patient History The patient states she had a clinical breast exam in 09/2019. Family history of breast cancer at age 50 or over in paternal aunt, breast cancer in paternal grandmother. No Hormone Replacement Therapy Digital Woman Screen Mammo: September 27, 2019 - Exam #: [id number] Bilateral CC and MLO view(s) were taken. Technologist: Anisha Dupree, Technologist Prior study comparison: September 26, 2018, bilateral digital woman screen mammo performed at [facility]. July 04, 2017, digital woman screen mammo performed at [facility]. May 04, 2016, digital woman screen mammo performed at [facility]. FINDINGS: The breast tissue is heterogeneously dense. This may lower the sensitivity of mammography. There is a moderate amount of heterogeneously dense fibroglandular tissue which is fairly symmetric. There is no interval development of dominant mass, architectural distortion, or grouped microcalcification typical of malignancy. There has been no change in the appearance of the mammogram from the prior studies. 3-D tomosynthesis shows no additional findings. Assessment: BI-RADS/ACR category 1 mammogram. Negative Mammogram. Recommendation Routine screening mammogram of both breasts in 1 year (for women over age 40). This patient's Lifetime Breast Cancer RIsk is estimated at 16.2 %. This mammogram was interpreted with the aid of an FDA-approved computer-aided dectection system. Electronically Signed By: Jaime Rodas MD 09/27/19 [id number]
== END ==
LOC: M WHC 09:00
PROVIDERS: ATTEND Nurse Practitioner Women's Health
DX: Z12.31 Encounter for screening mammogram for malignant neoplasm of breast (principal)
CPT/HCPCS: 77063; 77067; G0123

== ENCOUNTER → 2019-09-27 | Outpatient (CLI) | payer BC | LOC: M PLALAB 09:52 | PROVIDERS: ATTEND Nurse Practitioner Women's Health | DX: Z13.79 Encounter for other screening for genetic and chromosomal anomalies (principal) ==

== ENCOUNTER → 2019-10-04 | Outpatient (CLI) | payer BC ==
--- NOTE | 2019-10-04 16:26 | REP ---
Clinical: Right pelvic pain. Technique: Transabdominal pelvic ultrasound followed by transvaginal examination for better evaluation of the endometrium and adnexa with color Doppler evaluation of the ovaries. Findings: Bladder is normal and measures approximately 10.3 x 9.5 x 7.2 cm. Heterogeneous anteverted uterus measures 8.9 x 4.7 x 4.8 cm. Endometrial complex measures 8 mm thickness and appears heterogeneous with a small 9 x 4 x 8 mm hyperechoic focus that may represent polyp. These findings are nonspecific as the patient has had prior ablation. Cystic changes in the lower uterine segment are also noted and may represent Nabothian cysts up to 1 cm . Bilateral ovaries demonstrate normal vascularity without torsion and complex cysts. The right ovary measures 2.3 x 1.5 x 8-0.2 cm (RI 0.50) and includes 1.2 x 1.0 x 1.3 cm cyst and 1.3 x 1.1 x 1.1 cm septated cyst with debris. The left ovary measures 4.2 x 2.2 x 2.7 cm and includes 2.1 x 1.4 x 2.0 cm complex cyst with debris and 2.0 x 1.6 x 1.8 cm paraovarian cyst. No pelvic free fluid or discrete adnexal abnormality. Impression: 1. Heterogeneous changes to the endometrium with 9 mm hyperechoic focus possibly representing polyp although the patient is noted to be status post ablation and changes may be chronic in nature. 2. Multiple Nabothian cysts up to 10 mm. 3. Bilateral complex ovarian cysts likely physiologic. Consider reevaluation in 4-6 weeks to evaluate for resolution.
== END ==
LOC: M WHC 15:28
PROVIDERS: ATTEND Nurse Practitioner Women's Health
DX: R10.2 Pelvic and perineal pain (principal)

== ENCOUNTER → 2019-10-15 | Outpatient (CLI) | payer BC ==
--- NOTE | 2019-10-15 11:11 | REP ---
KUB ABDOMEN AND PELVIS: KUB film of the abdomen and pelvis is performed. Bowel gas pattern is normal. There is no evidence of small bowel dilatation. No abnormal calcifications are seen. There are mild degenerative changes of the spine. There is partial sacralization of L5 on the right. IMPRESSION: No acute abnormalities. Electronically Signed by Daljit Toribio MD 10/15/2019 01:26 P
[2019-10-15 13:44] LABS: BASO # 0.1 10^3/uL (0.0-0.2); BASO % 0.5 % (0.0-1.0); EOS # 0.2 10^3/uL (0.0-0.5); EOS % 1.4 % (0.0-3.0); HEMATOCRIT 44.5 % (36.0-47.0); HEMOGLOBIN 13.9 g/dl (12.0-15.5); LYMPH # 1.6 10^3/uL (1.5-5.0); LYMPH % 10.7 % (24.0-44.0); MEAN CORPUSCULAR HEMOGLOBIN 26.7 pg (27.0-33.0); MEAN CORPUSCULAR HGB CONC 31.2 g/dl (32.0-36.5); MEAN CORPUSCULAR VOLUME 85.4 fl (80.0-96.0); MONO % 6.4 % (0.0-5.0); NEUTROPHILS % 80.7 % (36.0-66.0); PLATELET COUNT, AUTOMATED 335 10^3/uL (150-450); RED BLOOD COUNT 5.21 10^6/uL (4.00-5.40); WHITE BLOOD COUNT 14.9 10^3/uL (4.0-10.0)
[2019-10-15 14:18] LABS: AMORPHOUS SEDIMENT SMALL (NEGATIVE); BACTERIA, URINE AUTO 1+ (NEGATIVE); CALCIUM OXALATE CRYSTALS LARGE; MUCUS, URINE SMALL (NEGATIVE); RBC, URINE AUTO 20 /HPF (0-3); SQUAMOUS EPITHELIAL CELL UR AU 5 /HPF (0-6); WBC, URINE AUTO 0 /HPF (0-3)
[2019-10-15 14:25] LABS: CALCIUM LEVEL 8.8 MG/DL (8.5-10.1); CREATININE FOR GFR 1.07 MG/DL (0.55-1.30); GLOMERULAR FILTRATION RATE 58.5 (>58); POTASSIUM SERUM 3.8 MEQ/L (3.5-5.1)
== END ==
LOC: M WUC 09:36
PROVIDERS: ATTEND Nurse Practitioner Family
DX: R10.10 Upper abdominal pain, unspecified (principal); M54.9 Dorsalgia, unspecified

== ENCOUNTER → 2019-10-22 | Outpatient (CLI) | payer BC ==
[2019-10-22 16:46] LABS: BASO # 0.1 10^3/uL (0.0-0.2); BASO % 0.9 % (0.0-1.0); EOS # 0.2 10^3/uL (0.0-0.5); EOS % 2.5 % (0.0-3.0); HEMATOCRIT 43.1 % (36.0-47.0); HEMOGLOBIN 13.9 g/dl (12.0-15.5); LYMPH # 1.9 10^3/uL (1.5-5.0); LYMPH % 24.1 % (24.0-44.0); MEAN CORPUSCULAR HEMOGLOBIN 27.6 pg (27.0-33.0); MEAN CORPUSCULAR HGB CONC 32.3 g/dl (32.0-36.5); MEAN CORPUSCULAR VOLUME 85.7 fl (80.0-96.0); MONO # 0.5 10^3/uL (0.0-0.8); NEUTROPHILS # 5.1 10^3/uL (1.5-8.5); NEUTROPHILS % 65.9 % (36.0-66.0); PLATELET COUNT, AUTOMATED 316 10^3/uL (150-450); RED BLOOD COUNT 5.03 10^6/uL (4.00-5.40); WHITE BLOOD COUNT 7.7 10^3/uL (4.0-10.0)
== END ==
LOC: M WUC 14:19
PROVIDERS: ATTEND Nurse Practitioner Family
DX: R10.10 Upper abdominal pain, unspecified (principal); K59.00 Constipation, unspecified; R31.9 Hematuria, unspecified

== ENCOUNTER → 2019-10-22 | Outpatient (CLI) | payer BC ==
--- NOTE | 2019-10-22 14:40 | REP ---
PA and lateral chest: Comparison is 08/13/2019. The lung whitlock are clear. The cardiac size is normal. The gaston, mediastinum, and skeletal structures are unremarkable. Impression: Negative PA and lateral chest. There is no interval change. Electronically Signed by Daljit Navarro MD 10/22/2019 02:31 P
== END ==
LOC: M WUC 14:15
PROVIDERS: ATTEND Physician Assistant
DX: R07.9 Chest pain, unspecified (principal)

== ENCOUNTER → 2019-11-01 | Outpatient (CLI) | payer BC ==
--- NOTE | 2019-11-01 20:42 | REP ---
Clinical: Left ovarian cyst. Comparison: 10/04/2019. Technique: Transabdominal pelvic ultrasound followed by transvaginal examination for better evaluation of the endometrium and adnexa with color evaluation. Findings: Heterogeneous anteverted uterus measures 8.4 x 4.6 x 4.6 cm and multiple Nabothian cysts are again noted. Endometrial complex measures 7 mm thickness and appears heterogeneous although the previously suggested endometrial polyp is not visualized on current examination. Ovaries are normal in vascularity without torsion. Right ovary measures 2.3 x 1.4 x 2.0 cm and includes 1.2 x 1.1 x 1.0 cm cyst similar to prior examination while the second previously noted right ovarian cyst has resolved. Left ovary measures 4.2 x 2.8 x 4.0 cm and includes enlarged versus new 3.2 x 2.6 x 3.6 cm cyst and 1.8 x 1.6 x 1.7 cm stable exophytic cyst. No pelvic fluid or adnexal mass lesion. Bladder is under distended. Impression: 1. Heterogeneous anteverted uterus with multiple Nabothian cysts. Endometrial complex is heterogeneous and previously suggested endometrial polyp is not definitively identified on current examination. 2. Bilateral ovarian cysts and left paraovarian/exophytic cyst are again noted. Electronically Signed by Joe Rodriguez MD 11/01/2019 08:33 P
== END ==
LOC: M WHC 09:26
PROVIDERS: ATTEND Nurse Practitioner Women's Health
DX: N83.202 Unspecified ovarian cyst, left side (principal)

== ENCOUNTER → 2020-01-28 | Outpatient (REF) | payer BC ==
[~2020-01-28] MED LIST changes: -LISI-542 PO; +LISI-898 PO; +MONT10TA10 PO; -MONT10TA4 PO; +PANT40TA29 PO; -PANT40TA3 PO
[2020-01-28 17:47] LABS: PERCENT SATURATION 27.5 % (13.2-45.0)
== END ==
LOC: M LAB REF 16:31
PROVIDERS: ATTEND Internal Medicine
DX: D50.9 Iron deficiency anemia, unspecified (principal)

== ENCOUNTER → 2020-10-06 | Outpatient (CLI) | payer BC ==
--- NOTE | 2020-10-06 09:17 | REPMRS ---
Patient History The patient states she had a clinical breast exam in September 2020. Family history of breast cancer at age 50 or over in paternal aunt, breast cancer in paternal grandmother. No Hormone Replacement Therapy Digital Woman Screen Mammo: October 06, 2020 - Exam #: [id number] Bilateral CC and MLO view(s) were taken. Technologist: Ingrid Salgado Technologist Prior study comparison: September 27, 2019, bilateral digital woman screen mammo performed at [facility]. September 26, 2018, bilateral digital woman screen mammo performed at [facility]. July 04, 2017, digital woman screen mammo performed at [facility]. FINDINGS: The breast tissue is heterogeneously dense. This may lower the sensitivity of mammography. The Volpara volumetric breast density category is: C. There is a moderate amount of heterogeneously dense fibroglandular tissue which is fairly symmetric. There is no interval development of dominant mass, architectural distortion, or grouped microcalcification typical of malignancy. There has been no change in the appearance of the mammogram from the prior studies. 3-D tomosynthesis shows no additional findings. Assessment: BI-RADS/ACR category 1 mammogram. Negative Mammogram. Recommendation Routine screening mammogram of both breasts in 1 year (for women over age 40). This patient's [facility] Lifetime Breast Cancer RIsk is estimated at 15.9 %. This mammogram was interpreted with the aid of an FDA-approved computer-aided dectection system. Electronically Signed By: Jaime Rodas MD 10/06/20 0916
== END ==
LOC: M WHC 08:19
PROVIDERS: ATTEND Nurse Practitioner Women's Health
DX: Z12.39 Encounter for other screening for malignant neoplasm of breast (principal)

== ENCOUNTER → 2020-10-31 | Outpatient (CLI) | payer OTHER ==
--- NOTE | 2020-11-01 19:43 | REP ---
INDICATION: INCREASED PAIN WITH ROM COMPARISON: None. TECHNIQUE: AP, lateral, bilateral oblique and sunrise views right and left knee. FINDINGS: The bilateral knees demonstrate relatively symmetric minimal age-related changes. Findings include minimally increased sclerosis to the tibial plateau and posterior contour of the patella with very mild medial and patellofemoral joint space narrowing (right greater than left). No further significant osteoarthritic or inflammatory arthritic changes are appreciated. No evidence for obvious acute or healed injury. No effusion. IMPRESSION: Mild relatively symmetric minimal age-related degenerative change. <Electronically signed by Joe Rodriguez > 11/01/201938
== END ==
LOC: M WUC 14:51
PROVIDERS: ATTEND Internal Medicine
DX: M17.0 Bilateral primary osteoarthritis of knee (principal)

== ENCOUNTER → 2021-04-09 | Outpatient (REF) | payer OTHER ==
[~2021-04-09] MED LIST changes: +FERR324T21 PO; -FERR325T16 PO
== END ==
LOC: M LAB REF 17:07
PROVIDERS: ATTEND Internal Medicine
DX: D51.9 Vitamin B12 deficiency anemia, unspecified (principal)

== ENCOUNTER → 2021-06-12 | Outpatient (CLI) | payer OTHER ==
--- NOTE | 2021-06-15 20:23 | SLEEPCENT ---
NOCTURNAL POLYSOMNOGRAPHY DATE: 06/12/2021 ORDERED BY: MARLEY Harris Nocturnal polysomnography was performed for evaluation of sleep physiology in this patient with a history of excessive somnolence and nonrestorative sleep. 8 hours and 11 minutes of data were reviewed. There were 375.5 minutes of sleep identified. Sleep latency was prolonged at 63.5 minutes. REM latency was further prolonged at 261 minutes. Sleep architecture showed fragmentation. There was one REM cycle late in the study. Overall sleep efficiency was 77.6%, but there was a reduction in REM time and an increase in stage I and II. The electrocardiogram showed a sinus rhythm with an average heart rate of 60 beats per minute; rate range 50 to 80. Unifocal PVCs were seen. EEG showed normal waveforms for wake and sleep. There were 71 respiratory events identified of 10 seconds in duration or greater for an apnea-hypopnea index of 11.3. The events were obstructive and not exclusive to sleep stage nor posture. Arousals from respiratory events occurred 7.2 times per hour. Some minor limb activity was noted. Limb movement arousal index 4.3. IMPRESSION: Obstructive sleep apnea syndrome (G47.33), apnea-hypopnea index 11.3. RECOMMENDATION: The patient should be encouraged to return to [facility]. In the interim, alcohol and sedative avoidance should be practiced and caution exercised during the operation of motor vehicles.
== END ==
LOC: M SLEEP 20:00
PROVIDERS: ATTEND Nurse Practitioner Family
DX: R06.83 Snoring (principal); G47.33 Obstructive sleep apnea (adult) (pediatric)

== ENCOUNTER → 2021-09-01 | Outpatient (CLI) | payer OTHER ==
[~2021-09-01] MED LIST changes: -LISI-898 PO; +LISI5TAB11 PO; -MONT10TA10 PO; +MONT10TA97 PO
== END ==
LOC: M RAD 16:50
PROVIDERS: ATTEND Nurse Practitioner Family
DX: U07.1 COVID-19 (principal)

== ENCOUNTER → 2021-11-09 | Outpatient (CLI) | payer BC, OTHER | LOC: M SLEEP 20:00 | PROVIDERS: ATTEND Nurse Practitioner Family | DX: G47.33 Obstructive sleep apnea (adult) (pediatric) (principal) ==

== ENCOUNTER → 2021-11-09 | Outpatient (CLI) | payer BC ==
[2021-11-09 13:39] LABS: ALBUMIN 3.5 GM/DL (3.2-5.2); ALT/SGPT 26 U/L (12-78); BILIRUBIN,TOTAL 0.9 MG/DL (0.2-1.0); BLOOD UREA NITROGEN 13 MG/DL (7-18); CALCIUM LEVEL 8.9 MG/DL (8.5-10.1); CARBON DIOXIDE LEVEL 29 MEQ/L (21-32); CHLORIDE LEVEL 112 MEQ/L (98-107); GLOMERULAR FILTRATION RATE > 60.0 (>58); GLUCOSE, FASTING 72 MG/DL (70-100); POTASSIUM SERUM 3.9 MEQ/L (3.5-5.1); SODIUM LEVEL 143 MEQ/L (136-145); TOTAL PROTEIN 6.6 GM/DL (6.4-8.2)
[2021-11-09 13:40] LABS: BASO # 0.1 10^3/uL (0.0-0.2); BASO % 0.7 % (0.0-1.0); EOS # 0.1 10^3/uL (0.0-0.5); EOS % 0.9 % (0.0-3.0); HEMATOCRIT 42.3 % (36.0-47.0); HEMOGLOBIN 13.5 g/dl (12.0-15.5); LYMPH # 2.2 10^3/uL (1.5-5.0); LYMPH % 25.7 % (24.0-44.0); MEAN CORPUSCULAR HEMOGLOBIN 28.1 pg (27.0-33.0); MEAN CORPUSCULAR HGB CONC 31.9 g/dl (32.0-36.5); MEAN CORPUSCULAR VOLUME 87.9 fl (80.0-96.0); MONO # 0.5 10^3/uL (0.0-0.8); MONO % 5.9 % (2.0-8.0); NEUTROPHILS # 5.6 10^3/uL (1.5-8.5); NEUTROPHILS % 66.3 % (36.0-66.0); RED BLOOD COUNT 4.81 10^6/uL (4.00-5.40); WHITE BLOOD COUNT 8.5 10^3/uL (4.0-10.0)
== END ==
LOC: M PLALAB 10:29
PROVIDERS: ATTEND Psychiatry & Neurology Neurology
DX: G44.40 Drug-induced headache, not elsewhere classified, not intractable (principal); T50.905A Adverse effect of unspecified drugs, medicaments and biological substances, initial encounter

== ENCOUNTER → 2021-11-12 | Outpatient (RCR) | payer BC | LOC: M PT 11-03 08:47 | PROVIDERS: ATTEND Psychiatry & Neurology Neurology | DX: M47.892 Other spondylosis, cervical region (principal) ==

== ENCOUNTER 2021-12-10 08:28 | Outpatient (RCR) | payer BC | END 2021-12-12 | LOC: M PT 08:28 | PROVIDERS: ATTEND Psychiatry & Neurology Neurology | DX: M48.02 Spinal stenosis, cervical region (principal) ==

== ENCOUNTER → 2021-12-17 | Outpatient (REF) | payer BC | LOC: M LAB REF 16:30 | PROVIDERS: ATTEND Internal Medicine | DX: N39.0 Urinary tract infection, site not specified (principal) ==

== ENCOUNTER → 2021-12-24 | Outpatient (CLI) | payer BC ==
[~2021-12-24] MED LIST changes: +BUSP10TA; +HYDR1CAP25; +OXYC1TAB23; +TAMS1CAP17; +ZONI50CA11
== END ==
LOC: M PLAIMG 12:52
PROVIDERS: ATTEND Internal Medicine
DX: R31.0 Gross hematuria (principal); N20.0 Calculus of kidney

== ENCOUNTER 2021-12-28 09:18 | Emergency (ER) | payer BC ==
[~2021-12-28] VITALS: Ht 165.1 cm; Wt 95.2 kg
[~2021-12-28 09:18] MED LIST changes: -BUSP10TA; -HYDR1CAP25; -OXYC1TAB23; -TAMS1CAP17; -ZONI50CA11
[2021-12-28] MEDS ORDERED: TAMS1CAP17 (09:29)
[2021-12-28] MEDS ORDERED: HYDR1CAP25 (09:29)
[2021-12-28] MEDS ORDERED: OXYC1TAB23 (09:29)
[2021-12-28] MEDS ORDERED: ZONI50CA11 (09:29)
[2021-12-28] MEDS ORDERED: BUSP10TA (09:29)
[2021-12-28] MEDS ORDERED: MORPHINE 4 MG/ML 1ML VIAL/SYRINGE IV ONE ×3 (10:00→12:40)
[2021-12-28] MEDS ORDERED: KETOROLAC 30 MG/ML 1ML VIAL IV ONE (10:00)
[2021-12-28 10:01] LABS: BASO % 0.4 % (0.0-1.0); EOS # 0.1 10^3/uL (0.0-0.5); EOS % 0.7 % (0.0-3.0); HEMATOCRIT 45.7 % (36.0-47.0); LYMPH # 1.5 10^3/uL (1.5-5.0); LYMPH % 14.4 % (24.0-44.0); MEAN CORPUSCULAR HEMOGLOBIN 29.2 pg (27.0-33.0); MEAN CORPUSCULAR HGB CONC 32.8 g/dl (32.0-36.5); MEAN CORPUSCULAR VOLUME 88.9 fl (80.0-96.0); MONO # 0.7 10^3/uL (0.0-0.8); MONO % 6.5 % (2.0-8.0); NEUTROPHILS # 8.1 10^3/uL (1.5-8.5); NEUTROPHILS % 77.7 % (36.0-66.0); PLATELET COUNT, AUTOMATED 239 10^3/uL (150-450); RED BLOOD COUNT 5.14 10^6/uL (4.00-5.40); WHITE BLOOD COUNT 10.5 10^3/uL (4.0-10.0)
[2021-12-28] MEDS ORDERED: NS 1,000 ML IV ONE (10:05)
[2021-12-28] MEDS ORDERED: ONDANSETRON 4MG/2ML VIAL IV ONE (10:05)
[2021-12-28 10:13] LABS: INR 0.93; PROTHROMBIN TIME 12.9 SECONDS (12.7-14.5)
[2021-12-28 10:14] LABS: PARTIAL THROMBOPLASTIN TIME 31.5 SECONDS (25.9-37.0)
[2021-12-28 10:23] LABS: ALBUMIN 3.6 GM/DL (3.2-5.2); ALT/SGPT 26 U/L (12-78); BILIRUBIN,DIRECT < 0.1 MG/DL (0.0-0.2); BILIRUBIN,TOTAL 0.2 MG/DL (0.2-1.0); LIPASE 283 U/L (73-393); TOTAL PROTEIN 7.2 GM/DL (6.4-8.2)
[2021-12-28] MEDS ORDERED: fentaNYL 100 MCG/2 ML INJECTION IV ONE (12:10)
[2021-12-28] MEDS ORDERED: TAMSULOSIN 0.4 MG CAP PO ONE (12:40)
[2021-12-28 13:36] LABS: CK-MB VALUE MASS < 1.0 NG/ML (<3.6); CPK CREATINE PHOSPHOKINASE 55 U/L (26-192); MB/CK RELATIVE INDEX 1.82 (< OR =4)
[2021-12-28 15:00] VITALS: BP 173/73
== END 2021-12-28 15:35 | disposition short-term general hospital (02) ==
LOC: M ED 09:18
DX: N13.2 Hydronephrosis with renal and ureteral calculous obstruction (principal); N17.9 Acute kidney failure, unspecified; I10 Essential (primary) hypertension; J45.909 Unspecified asthma, uncomplicated; K58.9 Irritable bowel syndrome, unspecified; F41.9 Anxiety disorder, unspecified; Z88.8 Allergy status to other drugs, medicaments and biological substances; Z87.442 Personal history of urinary calculi; Z86.69 Personal history of other diseases of the nervous system and sense organs; Z98.51 Tubal ligation status
CPT/HCPCS: 74176; 80047; 80076; 81001; 82550; 82553; 83690; 85025; 85610; 85730; 87086; 87426; 93005; 93041; 96374; 96375; 96376; 99285; J2270; J2405; J3010

== ENCOUNTER → 2021-12-31 | Outpatient (CLI) | payer BC ==
[~2021-12-31] MED LIST changes: +BUSP10TA; +HYDR1CAP25; +OXYC1TAB23; +TAMS1CAP17; +ZONI50CA11
== END ==
LOC: M RAD 15:44
PROVIDERS: ATTEND Physician Assistant
DX: N20.1 Calculus of ureter (principal); R91.8 Other nonspecific abnormal finding of lung field

== ENCOUNTER → 2022-01-05 | Outpatient (REF) | payer BC | LOC: M LAB REF 16:19 | PROVIDERS: ATTEND Internal Medicine | DX: N20.1 Calculus of ureter (principal) ==

== ENCOUNTER 2022-01-07 20:31 | Emergency (ER) | payer BC ==
[~2022-01-07] VITALS: Ht 165.1 cm; Wt 94.3 kg
[~2022-01-07 20:31] MED LIST changes: -BUSP10TA; +BUSP10TA PO; -HYDR1CAP25; +HYDR1CAP25 PO; -TAMS1CAP17; +TAMS1CAP17 PO; -ZONI50CA11; +ZONI50CA11 PO
[2022-01-07 22:24] LABS: BILIRUBIN, URINE MANUAL OBSCURED (NEGATIVE); GLUCOSE, URINE (UA) MANUAL NEGATIVE (NEGATIVE); KETONE, URINE MANUAL OBSCURED mg/dL (NEGATIVE); UROBILINOGEN, URINE MANUAL OBSCURED mg/dl (NORMAL)
[2022-01-07 22:33] LABS: RBC, URINE TNTC /hpf (0-3); SQUAMOUS EPITHELIAL CELL URINE MOD AMOUNT /hpf (SMALL AMT)
[2022-01-07 22:39] LABS: BACTERIA, URINE SMALL AMOUNT; HYALINE CAST, URINE NONE SEEN /lpf (0-1); MUCUS, URINE SMALL AMOUNT (NEGATIVE)
[2022-01-07 22:40] LABS: AMORPHOUS SEDIMENT, URINE SMALL AMOUNT (NEGATIVE)
[2022-01-08] MEDS ORDERED: ONDANSETRON 4MG/2ML VIAL IV ONE (00:45)
[2022-01-08] MEDS ORDERED: NS 1,000 ML IV ONE (00:45)
[2022-01-08] MEDS ORDERED: MORPHINE 4 MG/ML 1ML VIAL/SYRINGE IV ONE (00:45)
[2022-01-08 01:42] LABS: BASO # 0.1 10^3/uL (0.0-0.2); BASO % 0.4 % (0.0-1.0); EOS # 0.2 10^3/uL (0.0-0.5); EOS % 1.5 % (0.0-3.0); HEMATOCRIT 42.6 % (36.0-47.0); LYMPH # 2.8 10^3/uL (1.5-5.0); LYMPH % 20.7 % (24.0-44.0); MEAN CORPUSCULAR HEMOGLOBIN 29.1 pg (27.0-33.0); MEAN CORPUSCULAR HGB CONC 32.9 g/dl (32.0-36.5); MEAN CORPUSCULAR VOLUME 88.6 fl (80.0-96.0); MONO # 0.7 10^3/uL (0.0-0.8); MONO % 5.1 % (2.0-8.0); NEUTROPHILS # 9.6 10^3/uL (1.5-8.5); NEUTROPHILS % 71.8 % (36.0-66.0); PLATELET COUNT, AUTOMATED 341 10^3/uL (150-450); RED BLOOD COUNT 4.81 10^6/uL (4.00-5.40); WHITE BLOOD COUNT 13.4 10^3/uL (4.0-10.0)
[2022-01-08 02:15] LABS: CK-MB VALUE MASS 1.1 NG/ML (<3.6); MB/CK RELATIVE INDEX 2.82 (< OR =4)
[2022-01-08 02:27] LABS: ALBUMIN 3.4 GM/DL (3.2-5.2); ALT/SGPT 35 U/L (12-78); BILIRUBIN,DIRECT < 0.1 MG/DL (0.0-0.2); BILIRUBIN,TOTAL 0.4 MG/DL (0.2-1.0); BLOOD UREA NITROGEN 17 MG/DL (7-18); CARBON DIOXIDE LEVEL 26 MEQ/L (21-32); CHLORIDE LEVEL 112 MEQ/L (98-107); GLOMERULAR FILTRATION RATE > 60.0 (>51); GLUCOSE, FASTING 93 MG/DL (70-100); LIPASE 96 U/L (73-393); POTASSIUM SERUM 4.2 MEQ/L (3.5-5.1); SODIUM LEVEL 143 MEQ/L (136-145); TOTAL PROTEIN 6.5 GM/DL (6.4-8.2)
[2022-01-08] MEDS ORDERED: ISOVUE-370 76% 100ML VIAL As Ordered ONE (02:29)
[2022-01-08] MEDS ORDERED: FOSFOMYCIN TROMETHAMINE 3 GM POWDER PACKET (MONUROL) PO ONE (03:25)
[2022-01-08 03:37] VITALS: BP 135/76
[2022-01-12] MEDS ORDERED: MELA10CA6 PO (08:43)
[2022-01-12] MEDS ORDERED: FEXO-112 PO (08:43)
[2022-01-12] MEDS ORDERED: OXYB5TAB10 PO (08:43)
[2022-01-12] MEDS ORDERED: PHEN1TAB73 PO (08:43)
[2022-01-12] MEDS ORDERED: COLA100C5 PO (08:43)
[2022-01-12] MEDS ORDERED: BUSP15TA47 PO (08:43)
[2022-01-12] MEDS ORDERED: ACET-683 PO (08:43)
== END 2022-01-08 04:04 | disposition home or self-care (01) ==
LOC: M ED 20:31
DX: R10.9 Unspecified abdominal pain (principal); K76.89 Other specified diseases of liver; N20.0 Calculus of kidney; K57.30 Diverticulosis of large intestine without perforation or abscess without bleeding; N88.8 Other specified noninflammatory disorders of cervix uteri; I10 Essential (primary) hypertension; J44.9 Chronic obstructive pulmonary disease, unspecified; K58.8 Other irritable bowel syndrome; Z88.8 Allergy status to other drugs, medicaments and biological substances; Z79.899 Other long term (current) drug therapy
CPT/HCPCS: 74177; 76705; 80048; 80076; 81000; 81015; 82550; 82553; 83690; 85025; 87086; 93005; 96361; 96374; 96375; 99284; J2270; J2405; Q9967

== ENCOUNTER → 2022-01-09 | Outpatient (CLI) | payer BC ==
[~2022-01-09] MED LIST changes: +BUSP15TA47 PO; +COLA100C5 PO; +FEXO-112 PO; +MELA10CA6 PO; +OXYB5TAB10 PO; +PHEN1TAB73 PO
== END ==
LOC: M LABSMTC 09:09
PROVIDERS: ATTEND Anesthesiology
DX: Z01.812 Encounter for preprocedural laboratory examination (principal); Z20.822 Contact with and (suspected) exposure to COVID-19

== ENCOUNTER 2022-01-14 13:56 | Day surgery (SDC) | payer BC ==
[~2022-01-14] VITALS: Ht 165.1 cm; Wt 93.0 kg
[~2022-01-14 13:56] MED LIST changes: +CIPROFLOXACIN 400 MG in IV 1 EA IV ONE
[2022-01-14] MEDS ORDERED: LR 1,000 ML IV SCH ×2 (14:05→19:30)
[2022-01-14] MEDS ORDERED: ISOVUE-300 61% 50ML VIAL As Ordered ONE (15:38)
[2022-01-14] MEDS ORDERED: MIDAZOLAM INJ 2MG/2ML VIAL (J2250 PER 1MG) As Ordered ONE (16:22)
[2022-01-14] MEDS ORDERED: ONDANSETRON 4MG/2ML VIAL As Ordered ONE (16:22)
[2022-01-14] MEDS ORDERED: dexameTHASONE 4 MG/ML 1ML VIAL (J1100 PER 1MG) As Ordered ONE (16:22)
[2022-01-14] MEDS ORDERED: fentaNYL 100 MCG/2 ML INJECTION As Ordered ONE ×2 (16:22→19:31)
[2022-01-14] MEDS ORDERED: LIDOCAINE 2% 100MG/5ML SDV (FOR ANES.) As Ordered ONE (16:23)
[2022-01-14] MEDS ORDERED: propofoL 200 MG/20 ML VIAL As Ordered ONE (16:23)
[2022-01-14] MEDS ORDERED: OXYB-54 PO (17:58)
[2022-01-14] MEDS ORDERED: ACETAMINOPHEN 1000MG 100ML IV BTL (OFIRMEV) (J0131 PER 10MG) As Ordered ONE (18:32)
[2022-01-14] MEDS ORDERED: SCOPOLAMINE 1MG TRANSDERMAL PATCH As Ordered ONE (18:40)
[2022-01-14] MEDS ORDERED: METOCLOPRAMIDE INJ 10MG/2ML VIAL (J2765 PER 1) IV PRN (19:30)
[2022-01-14] MEDS ORDERED: ONDANSETRON 4MG/2ML VIAL IV PRN (19:30)
[2022-01-14] MEDS ORDERED: oxyCODONE 5MG TAB PO PRN (19:30)
[2022-01-14] MEDS: fentaNYL 100 MCG/2 ML INJECTION IV PRN ×2 (19:32→19:39)
[2022-01-14] MEDS ORDERED: oxyBUTYnin 5 MG TAB PO PRN (20:15)
[2022-01-14] MEDS ORDERED: PERCOCET 5MG/325MG TAB PO PRN (20:15)
[2022-01-14 20:35] VITALS: BP 148/83
== END 2022-01-14 20:42 | disposition home or self-care (01) ==
LOC: M SDC 13:56
PROVIDERS: ATTEND Urology
DX: N13.2 Hydronephrosis with renal and ureteral calculous obstruction (principal); K57.92 Diverticulitis of intestine, part unspecified, without perforation or abscess without bleeding; K58.8 Other irritable bowel syndrome; K21.9 Gastro-esophageal reflux disease without esophagitis; G25.81 Restless legs syndrome; F41.9 Anxiety disorder, unspecified; F32.A Depression, unspecified; J45.909 Unspecified asthma, uncomplicated; G43.909 Migraine, unspecified, not intractable, without status migrainosus; Z79.899 Other long term (current) drug therapy
CPT/HCPCS: 52332; 52352; 74420; 82365; C1769; C1894; C2617; J0131; J0744; J1100; J2250; J2405; J3010; Q9967

== ENCOUNTER → 2022-01-28 | Outpatient (REF) | payer BC ==
[~2022-01-28] MED LIST changes: -CIPROFLOXACIN 400 MG in IV 1 EA IV ONE; +OXYB-54 PO
== END ==
LOC: M SMT 16:48
PROVIDERS: ATTEND Urology
DX: R30.0 Dysuria (principal)

== ENCOUNTER → 2022-07-07 | Outpatient (CLI) | payer BC | LOC: M RAD 12:04 | PROVIDERS: ATTEND Nurse Practitioner Adult Health | DX: R10.84 Generalized abdominal pain (principal) ==

== ENCOUNTER → 2022-07-26 | Outpatient (CLI) | payer BC | LOC: M RAD 09:20 | PROVIDERS: ATTEND Urology | DX: N20.0 Calculus of kidney (principal) ==

== ENCOUNTER → 2022-07-28 | Outpatient (REF) | payer BC ==
[2022-07-29 14:38] LABS: FERRITIN 53.7 NG/ML (7.3-270.7)
[2022-07-29 19:07] LABS: PERCENT SATURATION 19.2 % (13.2-45.0)
== END ==
LOC: M LAB REF 12:14
PROVIDERS: ATTEND Internal Medicine
DX: D64.9 Anemia, unspecified (principal)

== ENCOUNTER → 2022-11-01 | Outpatient (REF) | payer BC ==
[2022-11-01 17:58] LABS: APPEARANCE, URINE CLOUDY (CLEAR); BACTERIA, URINE AUTO 1+ (NEGATIVE); BILIRUBIN, URINE AUTO NEGATIVE (NEGATIVE); BLOOD, URINE BLOOD 3+ (NEGATIVE); CALCIUM OXALATE CRYSTALS MODERATE; COLOR, URINE YELLOW (YELLOW); GLUCOSE, URINE (UA) AUTO NEGATIVE (NEGATIVE); KETONE, URINE AUTO NEGATIVE (NEGATIVE); LEUKOCYTE ESTERASE, URINE AUTO 3+ (NEGATIVE); MUCUS, URINE SMALL (NEGATIVE); NITRITE, URINE AUTO NEGATIVE (NEGATIVE); PROTEIN, URINE AUTO 2+ mg/dL (NEGATIVE); RBC, URINE AUTO TNTC /HPF (0-3); SPECIFIC GRAVITY URINE AUTO 1.025 (1.002-1.035); SQUAMOUS EPITHELIAL CELL UR AU 18 /HPF (0-6); TRANSITIONAL EPITHELIAL AUTO 1 /HPF; UROBILINOGEN, URINE AUTO 0.2 mg/dL (0.0-2.0); WBC, URINE AUTO 62 /HPF (0-3)
== END ==
LOC: M SMT 17:07
PROVIDERS: ATTEND Physician Assistant
DX: R30.0 Dysuria (principal)

== ENCOUNTER 2022-12-10 11:50 | Emergency (ER) | payer BC ==
[~2022-12-10] VITALS: Ht 165.1 cm; Wt 94.1 kg
[2022-12-10 11:52] VITALS: BP 172/98
[2022-12-10 12:50] LABS: BASO # 0.1 10^3/uL (0.0-0.2); BASO % 0.7 % (0.0-1.0); EOS # 0.2 10^3/uL (0.0-0.5); EOS % 1.9 % (0.0-3.0); HEMOGLOBIN 15.7 g/dl (12.0-15.5); LYMPH # 2.7 10^3/uL (1.5-5.0); MEAN CORPUSCULAR HEMOGLOBIN 28.1 pg (27.0-33.0); MEAN CORPUSCULAR HGB CONC 32.7 g/dl (32.0-36.5); MEAN CORPUSCULAR VOLUME 85.9 fl (80.0-96.0); MONO # 0.8 10^3/uL (0.0-0.8); MONO % 7.4 % (2.0-8.0); NEUTROPHILS # 7.4 10^3/uL (1.5-8.5); NEUTROPHILS % 65.4 % (36.0-66.0); PLATELET COUNT, AUTOMATED 315 10^3/uL (150-450); RED BLOOD COUNT 5.59 10^6/uL (4.00-5.40); WHITE BLOOD COUNT 11.3 10^3/uL (4.0-10.0)
[2022-12-10] MEDS ORDERED: diphenhydrAMINE 50MG/ML VIAL IV STA (12:59)
[2022-12-10] MEDS ORDERED: METOCLOPRAMIDE INJ 10MG/2ML VIAL IV ONE (13:00)
[2022-12-10] MEDS ORDERED: KETOROLAC 30 MG/ML 1ML VIAL IV ONE (13:00)
[2022-12-10] MEDS ORDERED: NS 1,000 ML IV ONE (13:00)
[2022-12-10 13:21] LABS: BLOOD UREA NITROGEN 15 MG/DL (9-23); CALCIUM LEVEL 9.2 MG/DL (8.5-10.1); CARBON DIOXIDE LEVEL 29 MMOL/L (20-31); CHLORIDE LEVEL 107 MMOL/L (98-107); CREATININE FOR GFR 0.81 MG/DL (0.55-1.30); GLOMERULAR FILTRATION RATE > 60.0 (>51); GLUCOSE, FASTING 106 MG/DL (60-100); POTASSIUM SERUM 4.2 MMOL/L (3.5-5.1); SODIUM LEVEL 142 MMOL/L (136-145)
[2022-12-10] MEDS ORDERED: VALPROATE SOD INJ 1,000 MG in D5W 50 ML IV ONE (14:10)
[2022-12-10 15:08] LABS: ERYTHROCYTE SEDIMENTATION RATE 22 mm/hr (0-30)
== END 2022-12-10 16:08 | disposition home or self-care (01) ==
LOC: M ED 11:50
DX: R51.9 Headache, unspecified (principal); Z88.8 Allergy status to other drugs, medicaments and biological substances; Z79.899 Other long term (current) drug therapy
CPT/HCPCS: 70450; 80048; 85025; 85652; 86140; 96365; 96375; 99282; J1200; J1885; J2765

== ENCOUNTER → 2023-01-06 | Outpatient (REF) | payer BC | LOC: M SFHCWAGY 13:30 | PROVIDERS: ATTEND Nurse Practitioner Family | DX: Z12.4 Encounter for screening for malignant neoplasm of cervix (principal) ==

== ENCOUNTER → 2023-01-06 | Outpatient (CLI) | payer BC | LOC: M WUC 11:31 | PROVIDERS: ATTEND Nurse Practitioner Family | DX: M79.644 Pain in right finger(s) (principal) ==

== ENCOUNTER → 2023-01-06 | Outpatient (CLI) | payer BC | LOC: M WUC 11:35 | PROVIDERS: ATTEND Internal Medicine | DX: M25.511 Pain in right shoulder (principal) ==

== ENCOUNTER → 2023-01-12 | Outpatient (CLI) | payer BC | LOC: M WHC 15:39 | PROVIDERS: ATTEND Nurse Practitioner Family | DX: Z12.31 Encounter for screening mammogram for malignant neoplasm of breast (principal); Z80.3 Family history of malignant neoplasm of breast ==

== ENCOUNTER → 2023-01-27 | Outpatient (REF) | payer BC ==
[2023-01-27 12:41] LABS: CHOLESTEROL RISK RATIO 4.56 (<5); HDL CHOLESTEROL 42.3 MG/DL (>40); LDL CHOLESTEROL 118.3 MG/DL (<100); NON-HDL-C 150.7 MG/DL
[2023-01-27 12:42] LABS: PERCENT SATURATION 17.3 % (13.2-45.0)
[2023-01-27 12:44] LABS: FERRITIN 36.3 NG/ML (7.3-270.7)
== END ==
LOC: M LAB REF 11:32
PROVIDERS: ATTEND Internal Medicine
DX: E78.5 Hyperlipidemia, unspecified (principal); R71.8 Other abnormality of red blood cells

== ENCOUNTER → 2023-01-31 | Outpatient (REF) | payer BC ==
[2023-02-04 11:09] LABS: ANTI DS-DNA AB Negative (Negative); ANTI-CHROMATIN ANTIBODIES <0.2 AI (0.0-0.9); ANTINUCLEAR ANTIBODIES DIRECT Negative (Negative); CYCLIC CITRULLINATED PEPTIDE 4 units (0-19); RNP ANTIBODIES <0.2 AI (0.0-0.9); SJOGREN'S ANTI SS-A <0.2 AI (0.0-0.9); SJOGREN'S ANTI SS-B <0.2 AI (0.0-0.9); SMITH ANTIBODIES <0.2 AI (0.0-0.9)
== END ==
LOC: M LAB REF 16:16
PROVIDERS: ATTEND Internal Medicine
DX: M25.511 Pain in right shoulder (principal); M79.7 Fibromyalgia

== ENCOUNTER → 2023-05-26 | Outpatient (CLI) | payer BC ==
[~2023-05-26] MED LIST changes: +BREO1INH3; +BUPR75TA5 PO; +FURO20TA2 PO; +HYDR-643 PO; +NAPR-885 PO; -OXYB5TAB10 PO; +OXYB5TAB11 PO; +PREG100C2 PO; +PROA1AER2 INH; +RIZA10TA2 PO; -ROPI0.253 PO; -ROPI0.5T3 PO; +ROPI0.5T33 PO; +ROPI5TAB19 PO
== END ==
LOC: M WUC 11:51
PROVIDERS: ATTEND Internal Medicine
DX: M25.562 Pain in left knee (principal)

== ENCOUNTER → 2023-06-09 | Day surgery (SDC) | payer BC ==
[~2023-06-09] VITALS: Ht 165.1 cm; Wt 93.9 kg
[~2023-06-09] MED LIST changes: +LIDOCAINE 2% 100MG/5ML SDV (FOR ANES.) As Ordered ONE; +MIDAZOLAM INJ 2MG/2ML VIAL As Ordered ONE; +NS 1,000 ML IV ONE; +propofoL 200 MG/20 ML VIAL As Ordered ONE
[2023-06-09 07:55] VITALS: TEMP 98.6
[2023-06-09 08:14] VITALS: BP 123/76; O2SAT 96
== END | disposition home or self-care (01) ==
LOC: M OPP 06:38
PROVIDERS: ATTEND Internal Medicine Gastroenterology
DX: Z86.010 Personal history of colon polyps (principal); K63.5 Polyp of colon; K57.30 Diverticulosis of large intestine without perforation or abscess without bleeding; K64.8 Other hemorrhoids; K58.9 Irritable bowel syndrome, unspecified; K21.9 Gastro-esophageal reflux disease without esophagitis; M79.7 Fibromyalgia; F32.A Depression, unspecified; F41.0 Panic disorder [episodic paroxysmal anxiety]; G43.909 Migraine, unspecified, not intractable, without status migrainosus; J45.909 Unspecified asthma, uncomplicated; G47.30 Sleep apnea, unspecified; Z88.8 Allergy status to other drugs, medicaments and biological substances; Z83.3 Family history of diabetes mellitus; Z80.8 Family history of malignant neoplasm of other organs or systems; Z82.49 Family history of ischemic heart disease and other diseases of the circulatory system
CPT/HCPCS: 45385; 88305; J2250

== ENCOUNTER → 2023-06-27 | Outpatient (CLI) | payer BC ==
[~2023-06-27] MED LIST changes: -LIDOCAINE 2% 100MG/5ML SDV (FOR ANES.) As Ordered ONE; -MIDAZOLAM INJ 2MG/2ML VIAL As Ordered ONE; -NS 1,000 ML IV ONE; -propofoL 200 MG/20 ML VIAL As Ordered ONE
[2023-06-27 13:47] LABS: BASO # 0.1 10^3/uL (0.0-0.2); BASO % 0.8 % (0.0-1.0); EOS # 0.1 10^3/uL (0.0-0.5); EOS % 1.4 % (0.0-3.0); HEMATOCRIT 43.9 % (36.0-47.0); HEMOGLOBIN 14.2 g/dl (12.0-15.5); LYMPH # 2.4 10^3/uL (1.5-5.0); LYMPH % 32.1 % (24.0-44.0); MEAN CORPUSCULAR HEMOGLOBIN 28.2 pg (27.0-33.0); MEAN CORPUSCULAR HGB CONC 32.3 g/dl (32.0-36.5); MEAN CORPUSCULAR VOLUME 87.3 fl (80.0-96.0); MONO # 0.3 10^3/uL (0.0-0.8); MONO % 4.5 % (2.0-8.0); NEUTROPHILS # 4.5 10^3/uL (1.5-8.5); NEUTROPHILS % 60.9 % (36.0-66.0); PLATELET COUNT, AUTOMATED 272 10^3/uL (150-450); RED BLOOD COUNT 5.03 10^6/uL (4.00-5.40); WHITE BLOOD COUNT 7.3 10^3/uL (4.0-10.0)
[2023-06-27 14:19] LABS: ALBUMIN 3.7 G/DL (3.2-5.2); ALKALINE PHOSPHATASE 93 U/L (46-116); ALT/SGPT 27 U/L (7.0-40); AST/SGOT 17 U/L (<34); BILIRUBIN,TOTAL 0.4 MG/DL (0.3-1.2); BLOOD UREA NITROGEN 10 MG/DL (9-23); CALCIUM LEVEL 9.1 MG/DL (8.5-10.1); CARBON DIOXIDE LEVEL 28 MMOL/L (20-31); CHLORIDE LEVEL 107 MMOL/L (98-107); CHOLESTEROL LEVEL 201 MG/DL (<200); CHOLESTEROL RISK RATIO 3.78 (<5); ESTRADIOL 52.4 PG/ML; FOLATE > 24.0 NG/ML (>5.4); FOLLICLE STIMULATING HORMONE 14.7 mIU/ML; FREE T4 1.01 NG/DL (0.89-1.76); GLOMERULAR FILTRATION RATE > 60.0 (>51); GLUCOSE, FASTING 86 MG/DL (60-100); HDL CHOLESTEROL 53.1 MG/DL (>40); LDL CHOLESTEROL 113.1 MG/DL (<100); LUTEINIZING HORMONE 3.8 mIU/ML; MAGNESIUM LEVEL 2.4 MG/DL (1.8-2.4); NON-HDL-C 147.9 MG/DL; POTASSIUM SERUM 4.5 MMOL/L (3.5-5.1); SODIUM LEVEL 142 MMOL/L (136-145); THYROID STIMULATING HORMONE 1.077 uIU/ML (0.55-4.78); TOTAL 25(OH) VITAMIN D 77.2 NG/ML (20.0-100.0); TOTAL PROTEIN 6.5 G/DL (5.7-8.2); TRIGLYCERIDES LEVEL 174 MG/DL (<150); VITAMIN B12 LEVEL 846 PG/ML (211-911)
[2023-06-27 15:05] LABS: HEMOGLOBIN A1c 5.2 % (4.0-6.0)
== END ==
LOC: M PLALAB 10:45
PROVIDERS: ATTEND Registered Nurse
DX: Z00.00 Encounter for general adult medical examination without abnormal findings (principal); E78.2 Mixed hyperlipidemia; I10 Essential (primary) hypertension; E66.9 Obesity, unspecified

== ENCOUNTER → 2023-07-25 | Outpatient (CLI) | payer BC | LOC: M RAD 15:06 | PROVIDERS: ATTEND Orthopaedic Surgery | DX: M25.562 Pain in left knee (principal); R93.6 Abnormal findings on diagnostic imaging of limbs ==

== ENCOUNTER → 2023-10-24 | Outpatient (REF) | payer BC, OTHER ==
[~2023-10-24] MED LIST changes: -OXYB5TAB11 PO; +OXYB5TAB14 PO
[2023-10-24 18:30] LABS: APPEARANCE, URINE CLOUDY (CLEAR); BACTERIA, URINE AUTO 1+ (NEGATIVE); BILIRUBIN, URINE AUTO NEGATIVE (NEGATIVE); BLOOD, URINE BLOOD NEGATIVE (NEGATIVE); COLOR, URINE AMBER (YELLOW); GLUCOSE, URINE (UA) AUTO NEGATIVE (NEGATIVE); KETONE, URINE AUTO NEGATIVE (NEGATIVE); LEUKOCYTE ESTERASE, URINE AUTO NEGATIVE (NEGATIVE); MUCUS, URINE SMALL (NEGATIVE); NITRITE, URINE AUTO NEGATIVE (NEGATIVE); PROTEIN, URINE AUTO NEGATIVE (NEGATIVE); RBC, URINE AUTO 0 /HPF (0-3); SPECIFIC GRAVITY URINE AUTO 1.016 (1.002-1.035); SQUAMOUS EPITHELIAL CELL UR AU 4 /HPF (0-6); UROBILINOGEN, URINE AUTO 0.2 mg/dL (0.0-2.0); WBC, URINE AUTO 2 /HPF (0-3)
== END ==
LOC: M SMT 17:34
PROVIDERS: ATTEND Physician Assistant
DX: R10.9 Unspecified abdominal pain (principal)

== ENCOUNTER → 2023-11-16 | Outpatient (REF) | payer OTHER ==
[2023-11-16 14:23] LABS: BASO % 0.6 % (0.0-1.0); EOS # 0.1 10^3/uL (0.0-0.5); EOS % 1.1 % (0.0-3.0); HEMATOCRIT 45.7 % (36.0-47.0); HEMOGLOBIN 14.8 g/dl (12.0-15.5); LYMPH # 2.3 10^3/uL (1.5-5.0); LYMPH % 36.8 % (24.0-44.0); MEAN CORPUSCULAR HGB CONC 32.4 g/dl (32.0-36.5); MEAN CORPUSCULAR VOLUME 89.6 fl (80.0-96.0); MONO # 0.4 10^3/uL (0.0-0.8); MONO % 5.8 % (2.0-8.0); NEUTROPHILS # 3.4 10^3/uL (1.5-8.5); NEUTROPHILS % 55.4 % (36.0-66.0); PLATELET COUNT, AUTOMATED 226 10^3/uL (150-450); WHITE BLOOD COUNT 6.2 10^3/uL (4.0-10.0)
[2023-11-16 14:53] LABS: ALBUMIN 3.9 G/DL (3.2-5.2); ALKALINE PHOSPHATASE 82 U/L (46-116); ALT/SGPT 26 U/L (7.0-40); AST/SGOT 14 U/L (<34); BILIRUBIN,TOTAL 0.5 MG/DL (0.3-1.2); BLOOD UREA NITROGEN 21 MG/DL (9-23); CALCIUM LEVEL 9.8 MG/DL (8.5-10.1); CARBON DIOXIDE LEVEL 31 MMOL/L (20-31); CHLORIDE LEVEL 107 MMOL/L (98-107); CHOLESTEROL LEVEL 149 MG/DL (<200); CHOLESTEROL RISK RATIO 3.38 (<5); CREATININE FOR GFR 0.88 MG/DL (0.55-1.30); GLOMERULAR FILTRATION RATE > 60.0 (>51); GLUCOSE, FASTING 76 MG/DL (60-100); POTASSIUM SERUM 4.1 MMOL/L (3.5-5.1); SODIUM LEVEL 144 MMOL/L (136-145); TOTAL PROTEIN 6.7 G/DL (5.7-8.2); TRIGLYCERIDES LEVEL 110 MG/DL (<150)
== END ==
LOC: M LAB REF 11:52
PROVIDERS: ATTEND Internal Medicine
DX: E78.5 Hyperlipidemia, unspecified (principal); R71.8 Other abnormality of red blood cells

== ENCOUNTER → 2024-07-06 | Outpatient (CLI) | payer OTHER | LOC: M WHC 07:02 | PROVIDERS: ATTEND Internal Medicine | DX: E04.1 Nontoxic single thyroid nodule (principal) ==

== ENCOUNTER → 2024-09-10 | Outpatient (CLI) | payer OTHER | LOC: M PLAIMG 09:59 | PROVIDERS: ATTEND Physician Assistant | DX: Z87.442 Personal history of urinary calculi (principal); R93.3 Abnormal findings on diagnostic imaging of other parts of digestive tract ==

== ENCOUNTER → 2024-10-26 | Outpatient (REF) | payer OTHER ==
[2024-10-26 13:02] LABS: CK-MB VALUE MASS < 1.0 NG/ML (<3.6)
[2024-10-26 13:04] LABS: CPK CREATINE PHOSPHOKINASE 61 U/L (34-145); MB/CK RELATIVE INDEX 1.63 (< OR =4)
== END ==
LOC: M LAB REF 12:15
PROVIDERS: ATTEND Nurse Practitioner Family
DX: R07.9 Chest pain, unspecified (principal)

== ENCOUNTER → 2024-11-28 | Outpatient (CLI) | payer OTHER ==
[2024-11-28 13:20] LABS: BASO # 0.1 10^3/uL (0.0-0.2); BASO % 1.1 % (0.0-1.0); EOS # 0.1 10^3/uL (0.0-0.5); HEMATOCRIT 45.4 % (36.0-47.0); HEMOGLOBIN 14.8 g/dl (12.0-15.5); LYMPH # 2.1 10^3/uL (1.5-5.0); LYMPH % 29.8 % (24.0-44.0); MEAN CORPUSCULAR HEMOGLOBIN 28.8 pg (27.0-33.0); MEAN CORPUSCULAR HGB CONC 32.6 g/dl (32.0-36.5); MEAN CORPUSCULAR VOLUME 88.3 fl (80.0-96.0); MONO # 0.5 10^3/uL (0.0-0.8); MONO % 7.4 % (2.0-8.0); NEUTROPHILS # 4.3 10^3/uL (1.5-8.5); NEUTROPHILS % 60.3 % (36.0-66.0); PLATELET COUNT, AUTOMATED 269 10^3/uL (150-450); RED BLOOD COUNT 5.14 10^6/uL (4.00-5.40); WHITE BLOOD COUNT 7.1 10^3/uL (4.0-10.0)
[2024-11-28 13:33] LABS: ERYTHROCYTE SEDIMENTATION RATE 10 mm/hr (0-30)
[2024-11-28 13:44] LABS: ALBUMIN 4.1 G/DL (3.2-5.2); ALKALINE PHOSPHATASE 108 U/L (35-104); ALT/SGPT 65 U/L (7.0-40); AST/SGOT 32 U/L (<34); BILIRUBIN,TOTAL 0.4 MG/DL (0.3-1.2); BLOOD UREA NITROGEN 27 MG/DL (9-23); CALCIUM LEVEL 10.5 MG/DL (8.5-10.1); CARBON DIOXIDE LEVEL 30 MMOL/L (20-31); CHLORIDE LEVEL 107 MMOL/L (98-107); CREATININE FOR GFR 1.01 MG/DL (0.55-1.30); GLUCOSE, FASTING 84 MG/DL (60-100); POTASSIUM SERUM 4.3 MMOL/L (3.5-5.1); RHEUMATOID FACTOR QUANT < 3.5 IU/ML (<14); SODIUM LEVEL 146 MMOL/L (136-145); TOTAL PROTEIN 7.1 G/DL (5.7-8.2)
[2024-11-28 13:48] LABS: THYROID STIMULATING HORMONE 1.776 uIU/ML (0.55-4.78)
[2024-11-28 13:53] LABS: TOTAL 25(OH) VITAMIN D 62.8 NG/ML (20.0-100.0)
== END ==
LOC: M PLALAB 10:07
PROVIDERS: ATTEND Psychiatry & Neurology Neurology
DX: R51.9 Headache, unspecified (principal)

== ENCOUNTER 2024-12-04 15:53 | Emergency (ER) | payer OTHER ==
[~2024-12-04] VITALS: Ht 165.1 cm; Wt 93.3 kg
[~2024-12-04 15:53] MED LIST changes: +TOPI-256 PO; -TOPI25TA10 PO
[2024-12-04 15:56] VITALS: TEMP 96.8
[2024-12-04 17:47] LABS: HEMOGLOBIN 14.3 g/dl (12.0-15.5); MEAN CORPUSCULAR HEMOGLOBIN 28.9 pg (27.0-33.0); MEAN CORPUSCULAR HGB CONC 32.5 g/dl (32.0-36.5); MEAN CORPUSCULAR VOLUME 89.1 fl (80.0-96.0); PLATELET COUNT, AUTOMATED 265 10^3/uL (150-450); RED BLOOD COUNT 4.94 10^6/uL (4.00-5.40); WHITE BLOOD COUNT 14.1 10^3/uL (4.0-10.0)
[2024-12-04 18:15] LABS: LIPASE 45 U/L (12-53)
[2024-12-04 18:17] LABS: ALBUMIN 3.9 G/DL (3.2-5.2); ALKALINE PHOSPHATASE 122 U/L (35-104); ALT/SGPT 37 U/L (7.0-40); AST/SGOT 14 U/L (<34); BILIRUBIN,DIRECT < 0.1 MG/DL (<0.4); BILIRUBIN,TOTAL 0.2 MG/DL (0.3-1.2); TOTAL PROTEIN 7.1 G/DL (5.7-8.2)
[2024-12-04 18:18] LABS: ATYPICAL LYMPH 11 % (0-5); BASOPHILS 1 % (0-1); LYMPHOCYTES 38 % (16-44); MONOCYTES 1 % (0-5); NEUTROPHILS 49 % (28-66)
[2024-12-04 18:19] LABS: PLATELET ESTIMATE NORMAL (NORMAL)
[2024-12-04] MEDS: KETOROLAC 30 MG/ML 1ML VIAL IV ONE (18:28)
[2024-12-04] MEDS ORDERED: ISOVUE-370 76% 100ML VIAL As Ordered ONE (18:32)
[2024-12-04] MEDS: MORPHINE 4 MG/ML 1ML VIAL IV ONE (19:09)
[2024-12-04] MEDS: ONDANSETRON 4MG 2ML VIAL IV ONE (19:09)
[2024-12-04 19:56] LABS: KETONE, URINE AUTO RFX NEGATIVE (NEGATIVE); MUCUS, URINE RFX SMALL (NEGATIVE); NITRITE, URINE AUTO RFX NEGATIVE (NEGATIVE); RBC, URINE AUTO RFX 1 /HPF (0-3); SQUAM EPITHELIAL CELL UR AURFX 2 /HPF (0-6); WBC, URINE AUTO RFX 4 /HPF (0-3)
[2024-12-04 19:59] LABS: LEUKOCYTE ESTERASE UR AUTO RFX TRACE (NEGATIVE)
[2024-12-04] MEDS ORDERED: SENN-186 PO (20:39)
[2024-12-04] MEDS ORDERED: COLA100C5 PO (20:39)
[2024-12-04] MEDS ORDERED: META0.52 PO (20:39)
[2024-12-04 20:50] VITALS: BP 162/86; O2SAT 98
== END 2024-12-04 20:51 | disposition home or self-care (01) ==
LOC: M ED 15:53
DX: K59.00 Constipation, unspecified (principal); K21.9 Gastro-esophageal reflux disease without esophagitis; M54.30 Sciatica, unspecified side; G43.909 Migraine, unspecified, not intractable, without status migrainosus; Z79.899 Other long term (current) drug therapy; Z88.5 Allergy status to narcotic agent; Z88.8 Allergy status to other drugs, medicaments and biological substances
CPT/HCPCS: 74177; 80047; 80076; 81001; 83690; 85025; 87086; 93005; 93041; 96374; 96375; 99284; J1885; J2405; Q9967

== ENCOUNTER → 2024-12-11 | Outpatient (REF) | payer OTHER ==
[~2024-12-11] MED LIST changes: +META0.52 PO; +SENN-186 PO
== END ==
LOC: M LAB REF 11:57
PROVIDERS: ATTEND Internal Medicine
DX: R59.0 Localized enlarged lymph nodes (principal); R10.31 Right lower quadrant pain

== ENCOUNTER → 2024-12-17 | Outpatient (CLI) | payer OTHER | LOC: M RAD 10:34 | PROVIDERS: ATTEND Internal Medicine | DX: R22.1 Localized swelling, mass and lump, neck (principal) ==

== ENCOUNTER → 2024-12-25 | Outpatient (CLI) | payer OTHER | LOC: M PLAIMG 09:23 | PROVIDERS: ATTEND Internal Medicine | DX: M54.2 Cervicalgia (principal) ==

== ENCOUNTER → 2025-03-29 | Outpatient (REF) | payer OTHER ==
[2025-04-03 01:12] LABS: BORRELIA SPECIES DNA NOT DETECTED (NOT DETECT)
[2025-04-03 20:57] LABS: LYME TOTAL ANTIBODY CIA <= 0.90 Index (<=0.90)
== END ==
LOC: M LAB REF 11:59
PROVIDERS: ATTEND Internal Medicine
DX: M25.50 Pain in unspecified joint (principal)